=== PATIENT | male | born 2000 | race Caucasian/White ===

== ENCOUNTER 2024-08-17 01:18 | Emergency (ER) | payer BC, MEDICAID, SELFPAY ==
[2024-08-17] VITALS (10 sets, daily range): BP systolic 105–137; BP diastolic 54–75; PULSE 57–83; RESP 16–18; TEMP 36.6; O2SAT 96–100; BMI 20.9
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
== END 2024-08-17 04:21 | disposition home or self-care (01) ==
PROVIDERS: Emergency Provider Emergency Medicine
DX: M79.18 Myalgia, other site (principal); S20.20XA Contusion of thorax, unspecified, initial encounter; Z72.0 Tobacco use; V09.9XXA Pedestrian injured in unspecified transport accident, initial encounter
CPT/HCPCS: 73562; 73630; 99284

== ENCOUNTER 2025-03-11 13:08 | Inpatient (IN) | payer BC, MEDICAID, SELFPAY ==
[2025-03-11 13:10] VITALS: BP 111/77; PULSE 99; RESP 16; TEMP 36.7; O2SAT 99
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
[2025-03-11 13:50] LABS: PCP Screen Urine Negative (Negative)
[2025-03-11 14:08] LABS: Hematocrit 39.6 % (37-53); Hemoglobin 13.10 g/dL (11.27-16.99); Mean Corpuscular HGB Conc 33.1 g/dL (30-55); Mean Corpuscular Hemoglobin 31.0 pg (27-33); Mean Corpuscular Volume 93.6 fl (82-101); Nucleated Red Blood Cells % 0 %; Platelet Count 202 10^3/cmm (157-399); Red Blood Count 4.23 10^6/uL (3.85-5.65); White Blood Count 7.50 10^3/uL (3.29-11.43)
[2025-03-11 14:26] LABS: Alanine Aminotransferase 13 U/L (0-41); Albumin Level 4.6 g/dL (3.5-5.2); Alkaline Phosphatase 57 U/L (40-130); Aspartate Amino Transferase 15 U/L (0-40); Blood Urea Nitrogen 16 mg/dL (6-20); Calcium 9.5 mg/dL (8.5-10.5); Carbon Dioxide 25 mmol/L (22-29); Chloride 100 mmol/L (98-107); Creatinine Clr Calc Pharmacy 116.1687; Globulin 2.5 g/dL (1.3-4.6); Glucose 84 mg/dL (65-115); Osmolality Calculated 284 mOsm/kg (285-295); Sodium 137 mmol/L (136-145); Total Protein 7.1 g/dL (6.6-8.7)
[2025-03-11 14:27] LABS: Acetaminophen < 5.0 ug/mL (10-30); Alcohol Level < 10 mg/dL (0-10); Anion Gap 16.3 (5-19); Potassium 4.3 mmol/L (3.5-5.1); Salicylate < 0.3 mg/dL (3-10)
[2025-03-11 15:14] VITALS: BP 106/79; PULSE 72; RESP 16; TEMP 36.8; O2SAT 100
--- NOTE | 2025-03-11 15:18 | PC.NURSE ---
96 hr rights reviewed with pt @1400 with assistance of [facility] chief credit officer Ross Rojas. All education reviewed with pt at this time. Pt verbalized understanding to hold parameters. Pt copy was left with pt @bedside. Pt provided a sandwich, pudding and soda. No further needs at this time
[2025-03-11 19:54] VITALS: BP 87/54; PULSE 57; RESP 16; TEMP 36.7; O2SAT 97
[2025-03-12 06:00] VITALS: BP 92/60; PULSE 69; RESP 15; TEMP 36.7; O2SAT 97
[2025-03-12 14:00] VITALS: BP 93/66; PULSE 85; RESP 18; TEMP 36.8; O2SAT 97
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
[2025-03-12 20:26] VITALS: BP 86/53; PULSE 55; RESP 16; TEMP 36.6; O2SAT 98
[2025-03-13 06:00] VITALS: BP 93/53; PULSE 60; RESP 17; TEMP 36.4; O2SAT 100
[2025-03-13 14:00] VITALS: PULSE 77; RESP 16; TEMP 36.9; O2SAT 99
[2025-03-13 19:51] VITALS: BP 98/66; PULSE 97; RESP 20; TEMP 36.7; O2SAT 100
--- NOTE | 2025-03-13 20:32 | P.NPUPN_ITS ---
Subjective NPU 2 Subjective: Patient presented today reporting that things were going better than yesterday. He was very focused on the fact that by being in the hospital he missed his son's fifth birthday. We discussed the fact that I am most focused on him being available and functional for the remainder of his birthdays than I am concerned about the 1 he missed as he was trying to be in a better place. We discussed sober living treatment and he seemed quite active alert and was of the belief that if he goes and states that his mother did some house she will prevent him from using because she will allow that kind of thing. He is not interested in medications and just endorsed now understanding that he should not use anymore. Mental Status Exam 2 MSE Comments: This is a slender possibly underweight white male in the hospital scrubs with limited grooming and poor eye contact. No abnormal movements except for moderate psychomotor retardation. More cooperative with exam and mild distress. Speech was more spontaneous, but decreased rate and volume. Mood described as a little better, affect was less lethargic. Thought process linear. Thought content: Patient did not report suicidal or homicidal ideation but did at admission, there were no delusions reported or noted, he did not report auditory or visual hallucinations. Attention and concentration were limited and memory was currently unreliable but none were formally tested. He is arousable and oriented to person and place. Insight, judgment and impulse control are impaired. Vitals/I&O/Wt Last Vital Signs Temp 98.1 F 03/13/25 19:51 Pulse 97 03/13/25 19:51 Resp 20 H 03/13/25 19:51 BP 98/66 03/13/25 19:51 Pulse Ox 100 03/13/25 19:51 O2 Del Method Room Air 03/13/25 19:51 Data NPU 03/11/25 14:01 03/11/25 14:01 A&P Assessment and plan 1. Suicidal ideation: 2. Depression: 3. Partner relational problem: 4. Methamphetamine use disorder, severe: Plan: This is a 24-year-old white male who is unknown to [facility] psychiatry but presents with suicidal ideation and depression with active addiction with a UDS positive for cannabis and amphetamines. 1. Consider medications. 2. Encourage individual, group and milieu therapies. 3. Continue every 15 minute checks for safety. 4. Encourage sober living treatment after discharge at the highest level care to which she is willing to commit. 5. Obtain collateral information. 6. Observe against the backdrop of the 96-hour hold. PDMP PDMP Reviewed: Not Reviewed Involuntary Hold Information 2 Hold Status: Legal Status: 96 Hour Hold Date/Time Hold Expires: 03/17/25 @ 1348 Attestations NPU 2 Medical Necessity Statement*: Inpatient hospitalization is medically necessary and the clinically appropriate intervention at this time. We will monitor/initiate medications and make changes as indicated. Likely length of stay 2-4 days. Coding Level of Care Code Acute Code for [facility] Fwd Diagnoses Suicidal ideation R45.851 Depression F32.A Partner relational problem Z63.0 Methamphetamine use disorder, severe F15.20
[2025-03-14 06:00] VITALS: BP 85/53; PULSE 84; RESP 18; TEMP 36.7; O2SAT 98
--- NOTE | 2025-03-14 13:11 | W.PM.NPUPNS ---
Subjective NPU Subjective: Patient presented today reporting that he is doing better. He was finally willing to talk to the treatment team about treatment moving forward after discharge and endorsed an openness to outpatient sober living treatment likely at [facility]. We discussed the likelihood of discharge in the morning. Mental Status Exam MSE Comments: This is a slender possibly underweight white male in the hospital scrubs with limited grooming and poor eye contact. No abnormal movements except for mild resolving psychomotor retardation. More cooperative with exam in mild distress. Speech was more spontaneous, but decreased rate and volume. Mood described as a little better, affect was less lethargic. Thought process linear. Thought content: Patient did not report suicidal or homicidal ideation but did at admission, there were no delusions reported or noted, he did not report auditory or visual hallucinations. Attention and concentration were limited and memory was more reliable but none were formally tested. He is alert and oriented x 3. Insight, judgment and impulse control are impaired. Vitals/I&O/Wt Last Vital Signs Temp 98.0 F 03/14/25 06:00 Pulse 84 03/14/25 06:00 Resp 18 03/14/25 06:00 BP 85/53 03/14/25 06:00 Pulse Ox 98 03/14/25 06:00 O2 Del Method Room Air 03/14/25 06:00 Data NPU 03/11/25 14:01 03/11/25 14:01 A&P Assessment and plan 1. Suicidal ideation: 2. Depression: 3. Partner relational problem: 4. Methamphetamine use disorder, severe: Plan: This is a 24-year-old white male who is unknown to [facility] psychiatry but presents with suicidal ideation and depression with active addiction with a UDS positive for cannabis and amphetamines. 1. Consider medications. 2. Encourage individual, group and milieu therapies. 3. Continue every 15 minute checks for safety. 4. Encourage sober living treatment after discharge at the highest level care to which he is willing to commit. He is reportedly going to work with [facility] for outpatient treatment 5. Obtain collateral information. 6. Observe against the backdrop of the 96-hour hold. 7. Likely plan for discharge in the morning. PDMP PDMP Reviewed: Not Reviewed Involuntary Hold Information Hold Status: Legal Status: 96 Hour Hold Date/Time Hold Expires: 03/17/25 @ 1348 Attestations NPU Medical Necessity Statement*: Inpatient hospitalization is medically necessary and the clinically appropriate intervention at this time. We will monitor/initiate medications and make changes as indicated. Likely length of stay 1-3 days. Coding Level of Care Code Acute Code for [facility] Fwd Diagnoses Suicidal ideation R45.851 Depression F32.A Partner relational problem Z63.0 Methamphetamine use disorder, severe F15.20
[2025-03-14 14:00] VITALS: BP 136/64; PULSE 93; RESP 18; TEMP 36.8; O2SAT 98
[2025-03-14 20:10] VITALS: BP 110/63; PULSE 91; RESP 20; TEMP 36.7; O2SAT 94
[2025-03-15 02:48] VITALS: BP 98/67; PULSE 87; RESP 16; TEMP 36.5; O2SAT 97
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
[2025-03-15 13:37] VITALS: BP 98/67; PULSE 87; RESP 18; TEMP 36.5; O2SAT 97
== END 2025-03-15 13:57 | disposition home or self-care (01) | DRG 881 ==
LOC: ER 13:48 → NP 14:00
PROVIDERS: Admitting Provider Psychiatry & Neurology Psychiatry; Emergency Provider Emergency Medicine; Visit Provider Psychiatry & Neurology Psychiatry
DX: F32.A Depression, unspecified (principal); R45.851 Suicidal ideations; F15.20 Other stimulant dependence, uncomplicated; Z63.0 Problems in relationship with spouse or partner; F12.20 Cannabis dependence, uncomplicated
CPT/HCPCS: 36415; 80053; 80306; 80307; 85025; 97150; 97165; 99285; J9999

== ENCOUNTER 2025-05-19 15:03 | Emergency (ER) | payer BC, MEDICAID, SELFPAY | END 2025-05-19 15:46 | disposition left against medical advice (07) | PROVIDERS: Emergency Provider Physician Assistant | DX: Z53.21 Procedure and treatment not carried out due to patient leaving prior to being seen by health care provider (principal) ==

== ENCOUNTER 2025-05-20 02:52 | Inpatient (IN) | payer BC, MEDICAID, SELFPAY ==
[2025-05-20] VITALS (13 sets, daily range): BP systolic 78–124; BP diastolic 49–79; PULSE 45–100; RESP 12–18; TEMP 36.6–36.7; O2SAT 92–100; BMI 22.3
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
--- NOTE | 2025-05-20 03:10 | ECG_ITS ---
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 Measurements Intervals [place] Rate: 57 P: 145 MO: 141 QRS: 128 QRSD: 109 T: 117 QT: 457 QTc: 448 Interpretive Statements SINUS BRADYCARDIA ARM LEADS REVERSED [INVERTED P AND QRS IN I] INCOMPLETE RIGHT BUNDLE BRANCH BLOCK No previous ECG available for comparison Electronically Signed On 05-20-2025 07:57:29 CDT by Luci Summers M.D. [email or web address]
[2025-05-20 03:13] LABS: Hematocrit 45.2 % (37-53); Hemoglobin 13.70 g/dL (11.27-16.99); Mean Corpuscular HGB Conc 30.3 g/dL (30-55); Mean Corpuscular Hemoglobin 31.6 pg (27-33); Mean Corpuscular Volume 104.1 fl (82-101); Nucleated Red Blood Cells % 0 %; Platelet Count 230 10^3/cmm (157-399); Red Blood Count 4.34 10^6/uL (3.85-5.65); White Blood Count 15.54 10^3/uL (3.29-11.43)
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
--- NOTE | 2025-05-20 03:27 | PC.NURSE ---
Per physician, pt transferred directly to restraint bed from EMS [facility].
--- NOTE | 2025-05-20 03:45 | PC.NURSE ---
96 HH Pt served with copy of 96 HH by this RN and security.
[2025-05-20 03:56] LABS: Alanine Aminotransferase 17 U/L (0-41); Albumin Level 4.4 g/dL (3.5-5.2); Alkaline Phosphatase 60 U/L (40-130); Anion Gap 17.5 (5-19); Aspartate Amino Transferase 25 U/L (0-40); Blood Urea Nitrogen 10 mg/dL (6-20); Calcium 8.3 mg/dL (8.5-10.5); Carbon Dioxide 19 mmol/L (22-29); Chloride 106 mmol/L (98-107); Creatinine Clr Calc Pharmacy 149.4507; Globulin 1.8 g/dL (1.3-4.6); Glucose 99 mg/dL (65-115); Osmolality Calculated 287 mOsm/kg (285-295); Potassium 3.5 mmol/L (3.5-5.1); Sodium 139 mmol/L (136-145); Thyroid Stimulating Hormone 1.23 uIU/mL (0.27-4.20); Total Protein 6.2 g/dL (6.6-8.7)
[2025-05-20 03:59] LABS: Acetaminophen < 5.0 ug/mL (10-30); Alcohol Level < 10 mg/dL (0-10); Salicylate < 0.3 mg/dL (3-10)
--- NOTE | 2025-05-20 03:59 | PC.NURSE ---
Geodon was held due to low HR at this time. This nurse, Sukhdeep RN and Olivia charge nurse wasted Geodon in the pyxis. [employer] did not allow for a second nurse verification. Olivia and Sukhdeep witnessed that this medication was wasted.
--- NOTE | 2025-05-20 05:50 | PC.NURSE ---
unable to obtain temp
--- NOTE | 2025-05-20 05:51 | PC.NURSE ---
unable to obtain temp
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
--- NOTE | 2025-05-20 09:24 | PC.OT ---
OT EVALUATION ORDERS RECEIVED. HOLD OT EVALUATION PER NURSING PATIENT HAS BEEN AGITATED AND IS CURRENTLY SLEEPING.
--- NOTE | 2025-05-20 11:42 | NUR.SHIFT ---
Pt received multiple medications upon arrival to the unit and he has not woke up to answer questions for an assessment.
[2025-05-21 06:00] VITALS: BP 98/51; PULSE 54; RESP 16; TEMP 36.7; O2SAT 99
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
--- NOTE | 2025-05-21 09:55 | PC.NURSE ---
Dr. Cruz gave verbal approval for pt to wear the nicotine patch and use the nicotine gum simultaneously.
[2025-05-21 11:06] LABS: Glucose Urine UA Negative (Normal); Nitrate Urine Negative (Negative); Specific Gravity, Urine 1.010 (1.005-1.030)
[2025-05-21 11:11] LABS: Add Urine Microscopic? YES
[2025-05-21 11:20] LABS: PCP Screen Urine Negative (Negative)
--- NOTE | 2025-05-21 12:30 | PC.NURSE ---
Pt removed nicotine patch @ 8883, an would rather have the nicotine gum or lozenge instead.
[2025-05-21 14:00] VITALS: BP 127/75; PULSE 59; RESP 17; TEMP 36.6; O2SAT 99
--- NOTE | 2025-05-21 18:06 | P.NPUPN_ITS ---
Subjective NPU 2 Subjective: Patient presented today reporting that he is doing better than yesterday but still having issues with depression and anxiety. We discussed the risks, benefits and alternatives of a trial of Prozac 20 mg p.o. daily and he understood and agreed to proceed as is documented in this note. He continues to report a desire to work with the social work team on appropriate follow-up after discharge. Hide any side effects of medication.. Mental Status Exam 2 MSE Comments: This is a slender possibly underweight white male in the hospital scrubs with limited grooming and poor eye contact. No abnormal movements except for significant psychomotor retardation. More cooperative with exam in mild to moderate distress. Speech was limited and decreased rate and volume. Mood described as depressed and anxious, affect was congruent and subdued. Thought process linear but at other times appeared disorganized. Thought content: Patient did not report suicidal or homicidal ideation, there were no delusions reported or noted, he did not report auditory or visual hallucinations. Attention and concentration were limited and memory was unreliable but none were formally tested. He is alert and oriented x 3. Insight, judgment and impulse control are impaired. Vitals/I&O/Wt Last Vital Signs Temp 97.8 F 05/21/25 14:00 Pulse 59 L 05/21/25 14:00 Resp 17 05/21/25 14:00 BP 127/75 05/21/25 14:00 Pulse Ox 99 05/21/25 14:00 O2 Del Method Room Air 05/21/25 14:00 Weight last 48 hrs Weight 72.575 kg Data NPU 05/20/25 03:08 05/20/25 03:08 A&P Assessment and plan 1. Suicidal ideation: 2. Depression: 3. Partner relational problem: 4. Methamphetamine use disorder, severe: Plan: This is a 25-year-old white male who just recently known to [facility] psychiatry through a past inpatient stay with active addiction and lethality who presents 2 months later with a similar presentation but denying methamphetamine use since his last admission. 1. Start Prozac 20 mg p.o. every morning. 2. Encourage individual, group and milieu therapies. 3. Continue every 15 minute checks for safety. 4. Encourage sober living treatment after discharge at the highest level care to which he is willing to commit. Recommendation for active/inpatient sober living treatment is still the recommendation 5. Obtain collateral information. 6. Observe against the backdrop of the 96-hour hold. 7. Recheck CBC with differential PDMP PDMP Reviewed: Not Reviewed Involuntary Hold Information 2 Hold Status: Legal Status: 96 Hour Hold Date/Time Hold Expires: @02:52 Attestations NPU 2 Medical Necessity Statement*: Inpatient hospitalization is medically necessary and the clinically appropriate intervention at this time. We will monitor/initiate medications and make changes as indicated. Likely length of stay 3-5 days. Coding Level of Care Code Acute Code for Chg Fwd Diagnoses Suicidal ideation R45.851 Depression F32.A Partner relational problem Z63.0 Methamphetamine use disorder, severe F15.20
[2025-05-21 20:01] VITALS: BP 120/73; PULSE 68; RESP 16; TEMP 37.2; O2SAT 100
[2025-05-22 06:00] VITALS: BP 113/67; PULSE 63; RESP 63; TEMP 36.7; O2SAT 99
[2025-05-22 08:21] LABS: Hematocrit 49.0 % (37-53); Hemoglobin 15.50 g/dL (11.27-16.99); Mean Corpuscular HGB Conc 31.6 g/dL (30-55); Mean Corpuscular Hemoglobin 31.2 pg (27-33); Mean Corpuscular Volume 98.6 fl (82-101); Nucleated Red Blood Cells % 0 %; Platelet Count 269 10^3/cmm (157-399); Red Blood Count 4.97 10^6/uL (3.85-5.65); White Blood Count 8.02 10^3/uL (3.29-11.43)
[2025-05-22 13:52] VITALS: BP 103/62; PULSE 68; RESP 18; TEMP 36.7; O2SAT 98
--- NOTE | 2025-05-22 14:46 | P.NPUPN_ITS ---
Subjective NPU 2 Subjective: Patient presented today reporting that things where improving. He endorsed working with the social work team on possible rehab options. He identified that the rehabs will likely be off in the future and started at identifying what discharge might look like we discussed working with the social work team for different options he wanted if he could not be discharged to his grandmother's house and that he would weight-bear awaiting his bed date for rehab. He denied any side effects of medication. Mental Status Exam 2 MSE Comments: This is a slender possibly underweight white male in the hospital scrubs with limited grooming and poor eye contact. No abnormal movements except for significant psychomotor retardation. More cooperative with exam in mild distress. Speech was limited and decreased rate and volume. Mood described as a little better maybe I could go home, affect was congruent and subdued. Thought process linear but at other times appeared disorganized. Thought content: Patient did not report suicidal or homicidal ideation, there were no delusions reported or noted, he did not report auditory or visual hallucinations. Attention and concentration were limited and memory was unreliable but none were formally tested. He is alert and oriented x 3. Insight, judgment and impulse control are impaired. Vitals/I&O/Wt Last Vital Signs Temp 98.1 F 05/22/25 13:52 Pulse 68 05/22/25 13:52 Resp 18 05/22/25 13:52 BP 103/62 05/22/25 13:52 Pulse Ox 98 05/22/25 13:52 O2 Del Method Room Air 05/22/25 13:52 Data NPU 05/22/25 08:11 05/20/25 03:08 A&P Assessment and plan 1. Suicidal ideation: 2. Depression: 3. Partner relational problem: 4. Methamphetamine use disorder, severe: Plan: This is a 25-year-old white male who just recently known to [facility] psychiatry through a past inpatient stay with active addiction and lethality who presents 2 months later with a similar presentation but denying methamphetamine use since his last admission. 1. Started Prozac 20 mg p.o. every morning. 2. Encourage individual, group and milieu therapies. 3. Continue every 15 minute checks for safety. 4. Encourage sober living treatment after discharge at the highest level care to which he is willing to commit. Recommendation for active/inpatient sober living treatment is still the recommendation 5. Obtain collateral information. 6. Observe against the backdrop of the 96-hour hold. 7. Recheck CBC with differential PDMP PDMP Reviewed: Not Reviewed Involuntary Hold Information 2 Hold Status: Legal Status: 96 Hour Hold Date/Time Hold Expires: @02:52 Attestations NPU 2 Medical Necessity Statement*: Inpatient hospitalization is medically necessary and the clinically appropriate intervention at this time. We will monitor/initiate medications and make changes as indicated. Likely length of stay 2-4 days. Coding Level of Care Code Acute Code for Chg Fwd Diagnoses Suicidal ideation R45.851 Depression F32.A Partner relational problem Z63.0 Methamphetamine use disorder, severe F15.20
[2025-05-22 19:48] VITALS: BP 121/85; PULSE 94; RESP 19; O2SAT 98
[2025-05-23 06:00] VITALS: BP 100/59; PULSE 62; RESP 18; TEMP 36.7; O2SAT 99
--- NOTE | 2025-05-23 13:00 | W.PM.NPUPNS ---
Subjective NPU Subjective: Patient presented today reporting that things were going fairly well. He discussed the difficulty that he has had finding of rehab spot that we will accept him. Additionally we discussed the importance of him attending rehab and not reporting the plan in going. We discussed possibility of discharge likely at the beginning of the week but hopefully there will be a solution to his rehab options prior we discussed he has a likely treatment. He is Mental Status Exam MSE Comments: This is a slender possibly underweight white male in the hospital scrubs with limited grooming and poor eye contact. No abnormal movements except for significant psychomotor retardation. More cooperative with exam in mild distress. Speech was limited and decreased rate and volume. Mood described as a little better, affect was congruent and subdued. Thought process linear but at other times appeared disorganized. Thought content: Patient did not report suicidal or homicidal ideation, there were no delusions reported or noted, he did not report auditory or visual hallucinations. Attention and concentration were limited and memory was unreliable but none were formally tested. He is alert and oriented x 3. Insight, judgment and impulse control are impaired. Vitals/I&O/Wt Last Vital Signs Temp 98.0 F 05/23/25 06:00 Pulse 62 05/23/25 06:00 Resp 18 05/23/25 06:00 BP 100/59 05/23/25 06:00 Pulse Ox 99 05/23/25 06:00 O2 Del Method Room Air 05/23/25 06:00 Data NPU 05/22/25 08:11 05/20/25 03:08 A&P Assessment and plan 1. Suicidal ideation: 2. Depression: 3. Partner relational problem: 4. Methamphetamine use disorder, severe: Plan: This is a 25-year-old white male who just recently known to [facility] psychiatry through a past inpatient stay with active addiction and lethality who presents 2 months later with a similar presentation but denying methamphetamine use since his last admission. 1. Started Prozac 20 mg p.o. every morning. 2. Encourage individual, group and milieu therapies. 3. Continue every 15 minute checks for safety. 4. Encourage sober living treatment after discharge at the highest level care to which he is willing to commit. Recommendation for active/inpatient sober living treatment is still the recommendation 5. Obtain collateral information. 6. Observe against the backdrop of the 96-hour hold. 7. Rechecked CBC with differential and he was absent any leukocytosis. PDMP PDMP Reviewed: Not Reviewed Involuntary Hold Information Hold Status: Legal Status: 96 Hour Hold Date/Time Hold Expires: 05/26/25@02:52 Attestations NPU Medical Necessity Statement*: Inpatient hospitalization is medically necessary and the clinically appropriate intervention at this time. We will monitor/initiate medications and make changes as indicated. Likely length of stay 2-4 days. Coding Level of Care Code Acute Code for g Fwd Diagnoses Suicidal ideation R45.851 Depression F32.A Partner relational problem Z63.0 Methamphetamine use disorder, severe F15.20
[2025-05-23 14:00] VITALS: BP 126/86; PULSE 74; RESP 20; TEMP 37.6; O2SAT 100
[2025-05-23 22:00] VITALS: BP 114/76; PULSE 75; RESP 17; TEMP 37.4; O2SAT 97
[2025-05-24 06:00] VITALS: BP 101/58; PULSE 74; RESP 18; TEMP 36.6; O2SAT 98
[2025-05-24 12:55] VITALS: BP 91/56; PULSE 60; RESP 16; TEMP 36.8; O2SAT 100
--- NOTE | 2025-05-24 18:53 | P.NPUPN_ITS ---
Subjective NPU 2 Subjective: Patient presented today reporting that he is starting to feel a lot better and more optimistic about his recovery. He reports the medications are working well and he is hopeful that we can give him the trazodone at discharge as he had previously used cannabis to sleep and he is identifying that that is probably not a good plan. Otherwise he denied any side effects of his medication. Mental Status Exam 2 MSE Comments: This is a slender possibly underweight white male in the hospital scrubs with limited grooming and poor eye contact. No abnormal movements except for significant psychomotor retardation. More cooperative with exam in mild distress. Speech was more normal rate and volume. Mood described as a little better, affect was congruent and subdued. Thought process linear but at other times appeared disorganized. Thought content: Patient did not report suicidal or homicidal ideation, there were no delusions reported or noted, he did not report auditory or visual hallucinations. Attention and concentration were limited and memory was unreliable but none were formally tested. He is alert and oriented x 3. Insight, judgment and impulse control are improving.. Vitals/I&O/Wt Last Vital Signs Temp 98.3 F 05/24/25 12:55 Pulse 60 05/24/25 12:55 Resp 16 05/24/25 12:55 BP 91/56 05/24/25 12:55 Pulse Ox 100 05/24/25 12:55 O2 Del Method Room Air 05/24/25 12:55 Weight last 48 hrs Weight 63.56 kg Data NPU 05/22/25 08:11 05/20/25 03:08 A&P Assessment and plan 1. Suicidal ideation: 2. Depression: 3. Partner relational problem: 4. Methamphetamine use disorder, severe: Plan: This is a 25-year-old white male who just recently known to [facility] psychiatry through a past inpatient stay with active addiction and lethality who presents 2 months later with a similar presentation but denying methamphetamine use since his last admission. 1. Started Prozac 20 mg p.o. every morning. 2. Encourage individual, group and milieu therapies. 3. Continue every 15 minute checks for safety. 4. Encourage sober living treatment after discharge at the highest level care to which he is willing to commit. Recommendation for active/inpatient sober living treatment is still the recommendation 5. Obtain collateral information. 6. Observe against the backdrop of the 96-hour hold. 7. Rechecked CBC with differential and he was absent any leukocytosis. PDMP PDMP Reviewed: Not Reviewed Involuntary Hold Information 2 Hold Status: Legal Status: 96 Hour Hold Date/Time Hold Expires: @02:52 Attestations NPU 2 Medical Necessity Statement*: Inpatient hospitalization is medically necessary and the clinically appropriate intervention at this time. We will monitor/initiate medications and make changes as indicated. Likely length of stay 2-4 days. Coding Level of Care Code Acute Code for Chg Fwd Diagnoses Suicidal ideation R45.851 Depression F32.A Partner relational problem Z63.0 Methamphetamine use disorder, severe F15.20
[2025-05-24 21:13] VITALS: BP 113/70; PULSE 64; RESP 18; TEMP 37.3; O2SAT 98
[2025-05-25 05:55] VITALS: BMI 19.5
[2025-05-25 06:00] VITALS: BP 102/69; PULSE 78; RESP 18; TEMP 36.6; O2SAT 99
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
[2025-05-25 13:28] VITALS: BP 114/70; PULSE 80; RESP 16; TEMP 37.2; O2SAT 98
--- NOTE | 2025-05-25 18:05 | P.NPUPN_ITS ---
Subjective NPU 2 Subjective: Patient presented today reporting that he has learned more this time and had a fully different approach that he will continue to use. We discussed him having a hearing scheduled for 3 PM on Monday but that it is really possible that he might not have the hearing, they may find him a place to go or might agree to have him sign in given his cooperation with the process. He reports he is doing well his medication and is optimistic about his future. He denied any side effects of the medication. Mental Status Exam 2 MSE Comments: This is a slender possibly underweight white male in the hospital scrubs with limited grooming and poor eye contact. No abnormal movements except for significant psychomotor retardation. More cooperative with exam in mild distress. Speech was more normal rate and volume. Mood described as a little better, affect was congruent and subdued. Thought process linear but at other times appeared disorganized. Thought content: Patient did not report suicidal or homicidal ideation, there were no delusions reported or noted, he did not report auditory or visual hallucinations. Attention and concentration were limited and memory was unreliable but none were formally tested. He is alert and oriented x 3. Insight, judgment and impulse control are improving.. Vitals/I&O/Wt Last Vital Signs Temp 99.4 F 05/25/25 19:56 Pulse 98 05/25/25 19:56 Resp 17 05/25/25 19:56 BP 116/68 05/25/25 19:56 Pulse Ox 97 05/25/25 19:56 O2 Del Method Room Air 05/25/25 19:56 Weight last 48 hrs Weight 63.56 kg Data NPU 05/22/25 08:11 05/20/25 03:08 A&P Assessment and plan 1. Suicidal ideation: 2. Depression: 3. Partner relational problem: 4. Methamphetamine use disorder, severe: Plan: This is a 25-year-old white male who just recently known to [facility] psychiatry through a past inpatient stay with active addiction and lethality who presents 2 months later with a similar presentation but denying methamphetamine use since his last admission. 1. Started Prozac 20 mg p.o. every morning. 2. Encourage individual, group and milieu therapies. 3. Continue every 15 minute checks for safety. 4. Encourage sober living treatment after discharge at the highest level care to which he is willing to commit. Recommendation for active/inpatient sober living treatment is still the recommendation 5. Obtain collateral information. 6. Observe against the backdrop of the 96-hour hold. 7. Rechecked CBC with differential and he was absent any leukocytosis. PDMP PDMP Reviewed: Not Reviewed Involuntary Hold Information 2 Hold Status: Legal Status: 96 Hour Hold Date/Time Hold Expires: @02:52 Attestations NPU 2 Medical Necessity Statement*: Inpatient hospitalization is medically necessary and the clinically appropriate intervention at this time. We will monitor/initiate medications and make changes as indicated. Likely length of stay 1-3 days. Coding Level of Care Code Acute Code for Chg Fwd Diagnoses Suicidal ideation R45.851 Depression F32.A Partner relational problem Z63.0 Methamphetamine use disorder, severe F15.20
[2025-05-25 19:56] VITALS: BP 116/68; PULSE 98; RESP 17; TEMP 37.4; O2SAT 97
[2025-05-26 06:00] VITALS: BP 100/62; PULSE 75; RESP 16; TEMP 36.4; O2SAT 96
[2025-05-26 14:00] VITALS: RESP 18
--- NOTE | 2025-05-26 18:03 | W.PM.NPUPNS ---
Subjective NPU Subjective: 25-year-old male with a history of drug induced psychotic disorder currently endorsing no psychotic symptoms. He reported that he had not been using amphetamine. The patient had endorsed that he may have used amphetamines for several days prior to his hospitalization here. He had expressed interest in considering inpatient substance abuse treatment. He had reported that he was hopeful about going to [facility] for inpatient substance abuse treatment. He reported no feelings of hopelessness. He reported no side effects from his medication. Mental Status Exam MSE Comments: This is a slender possibly underweight white male in the hospital scrubs with limited grooming and fair eye contact. No abnormal involuntary motor movements except for mild psychomotor retardation. He was cooperative with exam in mild distress. Speech was normal in rate and normal in volume. Mood described as a good. His affect was congruent and subdued. Thought process was linear and logical today. Thought content: Patient did not report suicidal or homicidal ideation, There were no delusions reported or noted, he did not report auditory or visual hallucinations. Attention and concentration were limited and memory was unreliable but none were formally tested. He is alert and oriented x 3. Insight was poor. His judgment and impulse control are improving.His recent and remote memory was grossly intact. Vitals/I&O/Wt Last Vital Signs Temp 97.6 F 05/26/25 06:00 Pulse 75 05/26/25 06:00 Resp 18 05/26/25 14:00 BP 100/62 05/26/25 06:00 Pulse Ox 96 05/26/25 06:00 O2 Del Method Room Air 05/26/25 06:00 Weight last 48 hrs Weight 63.56 kg Data NPU 05/22/25 08:11 05/20/25 03:08 A&P Assessment and plan 1. Suicidal ideation: 2. Depression: 3. Partner relational problem: 4. Methamphetamine use disorder, severe: Plan: This is a 25-year-old white male who just recently known to [facility] psychiatry through a past inpatient stay with active addiction and lethality who presents 2 months later with a similar presentation but denying methamphetamine use since his last admission. 1. Continue Prozac 20 mg p.o. every morning. 2. Encourage individual, group and milieu therapies. 3. Continue every 15 minute checks for safety. 4. Encourage sober living treatment after discharge at the highest level care to which he is willing to commit. Recommendation for active/inpatient sober living treatment is still the recommendation 5. Obtain collateral information. 6. Observe against the backdrop of the 96-hour hold. 7. Rechecked CBC with differential and he was absent any leukocytosis. PDMP PDMP Reviewed: Not Reviewed Involuntary Hold Information Hold Status: Legal Status: 96 Hour Hold Date/Time Hold Expires: 05/26/25@02:52 Attestations NPU Medical Necessity Statement*: Inpatient hospitalization is medically necessary and the clinically appropriate intervention at this time. We will monitor/initiate medications and make changes as indicated. The patient's likely length of stay is 1-2 days. Coding Level of Care Code Acute Code for Chg Fwd Diagnoses Suicidal ideation R45.851 Depression F32.A Partner relational problem Z63.0 Methamphetamine use disorder, severe F15.20
[2025-05-26 20:13] VITALS: BP 128/81; PULSE 87; RESP 18; TEMP 37.3; O2SAT 95
[2025-05-27 06:00] VITALS: BP 100/62; PULSE 74; RESP 14; TEMP 36.7; O2SAT 92
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
[2025-05-27 13:21] VITALS: BP 100/62; PULSE 74; RESP 14; TEMP 36.6; O2SAT 92
[2025-05-27 13:45] VITALS: BP 128/64; PULSE 87; RESP 14; TEMP 37.3; O2SAT 100
== END 2025-05-27 15:00 | disposition home or self-care (01) | DRG 881 ==
LOC: ER 04:01 → NP 05:17
PROVIDERS: Admitting Provider Psychiatry & Neurology Psychiatry; Emergency Provider Emergency Medicine; Visit Provider Psychiatry & Neurology Psychiatry
DX: F32.A Depression, unspecified (principal); F15.259 Other stimulant dependence with stimulant-induced psychotic disorder, unspecified; R45.851 Suicidal ideations; Z68.1 Body mass index [BMI] 19.9 or less, adult; Z78.1 Physical restraint status; F17.200 Nicotine dependence, unspecified, uncomplicated; F41.9 Anxiety disorder, unspecified; R63.6 Underweight; F12.90 Cannabis use, unspecified, uncomplicated
CPT/HCPCS: 36415; 80053; 80306; 80307; 81001; 84443; 85025; 93005; 97150; 97165; 99285; J9999

== ENCOUNTER 2025-05-29 17:24 | Inpatient (IN) | payer BC, SELFPAY ==
--- NOTE | 2025-05-29 17:11 | ECG_ITS ---
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
[2025-05-29 17:14] VITALS: BMI 19.5
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
[2025-05-29 17:27] VITALS: BP 118/79; PULSE 83; RESP 17; TEMP 37.1; O2SAT 96
--- OUTSIDE RECORDS SUMMARY | 2025-05-29 17:27 | XMS_ITS | Data Portability ---
Author Organization [facility] Kyle Gaytan [facility] Address [address] [facility] [address] [place] [address] Assessment No assessment recorded. Plan of Treatment Reminders Order Date Submit Date Provider Last Modified By Organization Details Last Modified Time Details Appointments None recorded. Lab None recorded. Referral None recorded. Procedures None recorded. Surgeries None recorded. Imaging None recorded. Medication Orders cyclobenzap rine 5 mg tablet 2024 025 [facility], [address], [place], [address], 05:01:24 Patient TargetsNo targets recorded. Patient InstructionsNo instructions recorded. Reason for Referral None Reported. Medical Equipment None Reported. Allergies No known drug allergies Medications Name Sig Start Date Stop Date Status Note LastModified by Organization Details LastModified Time mupirocin 2 % topical ointment three times daily 12/28 completed Recorded 9 3:08PM by Sophia Fan PA-C, Office Visit; Refill Quantity: 0; Not Available Not Available Not Available Bactrim DS 800 mg-160 mg tablet two times daily 12/28 completed Recorded 9 3:08PM by Sophia Fan PA-C, Office Visit; Refill Quantity: 0; Not Available Not Available Not Available cyclobenz aprine 5 mg tablet Take 1 tablet 3 times a day by oral route as needed for 5 days. 01/09 completed Not Available Not Available Not Available Vitals Date Recorded Body weight Body mass index (BMI) Body height Body temperature Heart rate Oxygen saturation Oxygen saturation in Arterial blood by Pulse oximetry Systolic And Diastolic Provider Name and Address Organization Details Last Updated DateTime 05404.9 2 g 19.7 kg/m2 180.34 cm 98.2 [degF] 94 /min 97 % 97 % 118/68 mm[Hg] Christine Carty [facility], Kyle 12:32:18 Social History None recorded. Functional Status None recorded. Mental Status None recorded. Family History Nothing Reported. Medical History No medical history recorded. Immunizations Vaccine Type Date Status Note Provider Nam e and Address Organization Details Recorded Time Hep B, adolescent or pediatric 1 completed Not Available [facility] 12/28/2024 12:26:16 Hep B, adolescent or pediatric 1 completed Not Available [facility] 12/28/2024 12:26:16 DTaP 1 completed Not Available [facility] 12/28/2024 12:26:16 IPV 1 completed Not Available [facility] 12/28/2024 12:26:16 Hib, unspecified formulation 1 completed Not Available [facility] 12/28/2024 12:26:16 pneumococcal, unspecified formulation 1 completed Not Available [facility] 12/28/2024 12:26:16 pneumococcal, unspecified formulation 2 completed Not Available [facility] 12/28/2024 12:26:16 DTaP 2 completed Not Available [facility] 12/28/2024 12:26:16 IPV 2 completed Not Available [facility] 12/28/2024 12:26:16 Hib (PRP-T) 2 completed Not Available [facility] 12/28/2024 12:26:16 pneumococcal, unspecified formulation 2 completed Not Available [facility] 12/28/2024 12:26:16 DTaP 2 completed Not Available [facility] 12/28/2024 12:26:16 Hep B, adolescent or pediatric 2 completed Not Available [facility] 12/28/2024 12:26:16 Hib (PRP-T) 2 completed Not Available [facility] 12/28/2024 12:26:16 pneumococcal, unspecified formulation 3 completed Not Available [facility] 12/28/2024 12:26:16 varicella 3 completed Not Available [facility] 12/28/2024 12:26:16 MMR 3 completed Not Available [facility] 12/28/2024 12:26:16 IPV 3 completed Not Available [facility] 12/28/2024 12:26:16 Hib (PRP-T) 3 completed Not Available [facility] 12/28/2024 12:26:16 DTaP 3 completed Not Available [facility] 12/28/2024 12:26:16 DTaP 6 completed Not Available [facility] 12/28/2024 12:26:16 IPV 6 completed Not Available [facility] 12/28/2024 12:26:16 MMR 6 completed Not Available [facility] 12/28/2024 12:26:16 varicella 5 completed Not Available [facility] 12/28/2024 12:26:16 Tdap 5 completed Not Available [facility] 12/28/2024 12:26:16 meningococcal MCV4P 5 completed Not Available [facility] 12/28/2024 12:26:16 Past Encounters Encounter ID Performer Location Encounter Start Date Encounter Closed Date Diagnosis/Indication Diagnosis SNOMED-CT Code Diagnosis ICD10 Code Diagnosis IMO Codes Diagnosis Note [id number] [facility] ([facility] [address] [place] [address] 12/28/2024 12:25:55 12/29/2024 17:14:41 Acute low back pain 293777797 M54.50 [id number] COntinue voltaren gel. Patient advised to take medication as directed here. Patient advised to rest initially and then slowly increase activity level. Monitor changes in symptoms such as numbness, tingling or weakness in legs, changes in bowel or bladder habits or worsening back pain. Proper ergonomics discussed. Referral to physical therapy as needed. Patient will call if symptoms worsen or if pain persists greater than 8 weeks. Health Concerns Section Related Observation LastModified by Organization Detai ls LastModified Time None Recorded Concern Status LastModified by Organization Details LastModified Time None Recorded Advance Directives Directive None Recorded Payers Insurance Date Sequence Insurance Name Policy Number Policy Lara Covered Member ID Lara Member ID Guarantor Name 12/28/2024 1 [employer] [place] ([place]AC[place] - [place]MO) [id number] Bennie Gaona [id number] Bennie Gaona Notes Date Note Type Note Provider Name and Address Organization Details Recorded Time 12/28/2024 text/html Back PainReporte d by PatientROS as noted in the HPI walk in ptPt is having lower back pain that started yesterday after lifting 50lb bag of feed. Patient states that he twisted with the bag to the left and has had muscle pain since. Patient has applied voltaren gel otc which has helped some.Also having diarrhea since yesterday. Took some otc anti diarrheal medication with resolution of symptoms. Denies any known ill contacts. EDY CUTLER, [facility] [address] [place], [address], [facility] 12/28/2024 13:31:33
[2025-05-29] MEDS: LORazepam 1 MG/0.5 ML injection 2 MG IM (17:41)
[2025-05-29 18:01] LABS: Hematocrit 41.6 % (37-53); Hemoglobin 13.70 g/dL (11.27-16.99); Mean Corpuscular HGB Conc 32.9 g/dL (30-55); Mean Corpuscular Hemoglobin 31.2 pg (27-33); Mean Corpuscular Volume 94.8 fl (82-101); Nucleated Red Blood Cells % 0 %; Platelet Count 188 10^3/cmm (157-399); Red Blood Count 4.39 10^6/uL (3.85-5.65); White Blood Count 9.17 10^3/uL (3.29-11.43)
--- NOTE | 2025-05-29 18:28 | PC.NURSE ---
96 Hour Involuntary Hold Patient Rights have been reviewed with patient and a copy of the same has been provided to him. Battery Test Engineer Griffin Boogie was present at bedside during presentation of Rights.
[2025-05-29 18:40] LABS: Alanine Aminotransferase 22 U/L (0-41); Albumin Level 4.4 g/dL (3.5-5.2); Alkaline Phosphatase 62 U/L (40-130); Anion Gap 15.8 (5-19); Aspartate Amino Transferase 21 U/L (0-40); Blood Urea Nitrogen 12 mg/dL (6-20); Calcium 9.3 mg/dL (8.5-10.5); Carbon Dioxide 22 mmol/L (22-29); Chloride 102 mmol/L (98-107); Globulin 2.5 g/dL (1.3-4.6); Glucose 109 mg/dL (65-115); Osmolality Calculated 282 mOsm/kg (285-295); Potassium 3.8 mmol/L (3.5-5.1); Sodium 136 mmol/L (136-145); Thyroid Stimulating Hormone 0.40 uIU/mL (0.27-4.20); Total Protein 6.9 g/dL (6.6-8.7)
[2025-05-29 18:43] LABS: Acetaminophen < 5.0 ug/mL (10-30); Alcohol Level < 10 mg/dL (0-10); Salicylate < 0.3 mg/dL (3-10)
[2025-05-29 19:21] VITALS: BP 80/50; PULSE 51; RESP 16; O2SAT 95
[2025-05-29 19:23] VITALS: BP 99/72; PULSE 60; O2SAT 95
[2025-05-29 22:00] VITALS: BP 80/50; PULSE 51; RESP 16; O2SAT 95
[2025-05-30 06:00] VITALS: BP 90/50; PULSE 83; RESP 16; TEMP 36.8; O2SAT 95
[2025-05-30 08:03] LABS: Glucose Urine UA Negative (Normal); Nitrate Urine Negative (Negative); Specific Gravity, Urine 1.021 (1.005-1.030)
[2025-05-30 08:08] LABS: Add Urine Microscopic? YES
[2025-05-30 08:10] LABS: PCP Screen Urine Negative (Negative)
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
[2025-05-30 08:24] LABS: UA Slide Review UA Slide Review Perf
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
[2025-05-30 13:25] VITALS: BP 128/84; PULSE 85; RESP 20; TEMP 36.9; O2SAT 100
[2025-05-30 19:53] VITALS: BP 126/82; PULSE 74; RESP 16; TEMP 37; O2SAT 99
[2025-05-31 06:00] VITALS: BP 107/71; PULSE 76; RESP 16; TEMP 36.5; O2SAT 100
--- NOTE | 2025-05-31 08:24 | NUR.SHIFT ---
Pt states that he slept off and on all night. He rates his anxiety 3/10 and no depression. No reports of SI/HI or hallucinations. No pain reported. He is calm and cooperative on assessment.
[2025-05-31 14:00] VITALS: BP 105/64; PULSE 81; RESP 16; TEMP 37.2; O2SAT 96
--- NOTE | 2025-05-31 16:02 | P.NPUPN_ITS ---
Subjective NPU 2 Subjective: 25-year-old male with a history of drug induced psychotic disorder admitted with continued use of high concentration of THC. The patient had reported that he wanted to go to inpatient substance abuse treatment. He had reported having problems with anxiety. He had endorsed depression as well. He had reported no recent use of methamphetamine and reported that he was having problems with his anger. He had reported having anger problems since childhood. He was pleasant and cooperative on the milieu. He was able to attend groups. Mental Status Exam 2 MSE Comments: This is a slender white male in the hospital scrubs with limited grooming and fleeting eye contact. No abnormal involuntary motor movements except for mild psychomotor agitation. He was cooperative with exam and mild distress. Speech was productive and slightly increased in rate and volume. Mood described as okay. Affect was slightly euphoric. Thought process was more linear. Thought content: Patient did not report suicidal or homicidal ideation. There was no evidence of delusional thinking. He did not appear to be responding to internal stimuli. He denied any auditory or visual hallucinations. His attention span appeared better. Attention and concentration were limited and memory was currently unreliable but none were formally tested. He was alert and oriented to person, place, time,and situation. Insight is poor. Judgment was limited. Impulse control appeared poor. Vitals/I&O/Wt Last Vital Signs Temp 98.9 F 05/31/25 14:00 Pulse 81 05/31/25 14:00 Resp 16 05/31/25 14:00 BP 105/64 05/31/25 14:00 Pulse Ox 96 05/31/25 14:00 O2 Del Method Room Air 05/31/25 06:00 Weight last 48 hrs Weight 63.503 kg Data NPU 05/29/25 17:43 05/29/25 17:43 Micro: Microbiology 05/30/25 07:35 Urine Culture - Preliminary Urine,Clean Catch Microbiology 05/30/25 07:35 Urine,Clean Catch Urine Culture - Preliminary A&P Assessment and plan 1. Acute psychosis: 2. Suicidal ideation: 3. Depression: 4. Partner relational problem: 5. Methamphetamine use disorder, severe: Plan: This is a 25-year-old white male who just recently discharged two days prior presenting with agitation and paranoia with likely trigger being THC mixed with hallucinogen (wax). 1. Continue Prozac 20 mg p.o. every morning. Continue Invega 3mg at night for agitation and paranoia. 2. Encourage individual, group and milieu therapies. 3. Continue every 15 minute checks for safety. 4. Encourage sober living treatment after discharge at the highest level care to which he is willing to commit. Recommendation for active/inpatient sober living treatment is still the recommendation 5. Obtain collateral information. 6. Observe against the backdrop of the 96-hour hold. PDMP PDMP Reviewed: Not Reviewed Involuntary Hold Information 2 Hold Status: Legal Status: 96 Hour Hold Date/Time Hold Expires: 1 @18:10 Attestations NPU 2 Medical Necessity Statement*: Inpatient hospitalization is medically necessary and the clinically appropriate intervention at this time. We will monitor/initiate medications and make changes as indicated. Likely length of stay 4 to 6 days. Coding Level of Care Code Acute Code for Chg Fwd Diagnoses Acute psychosis F23 Suicidal ideation R45.851 Depression F32.A Partner relational problem Z63.0 Methamphetamine use disorder, severe F15.20
[2025-05-31 20:17] VITALS: BP 106/63; PULSE 81; RESP 16; TEMP 37.1; O2SAT 97
[2025-06-01 06:00] VITALS: BP 92/52; PULSE 76; RESP 16; TEMP 37; O2SAT 95
--- NOTE | 2025-06-01 07:58 | NUR.SHIFT ---
When patient was asked how he slept last night he states, not bad, but still had weird dreams He is wanting to try taking his nicotine patch off sooner to see if that helps or he thinks it was potentially the trazodone too. he denies anxiety and depression. No reports of SI/HI or Franklyn. No pain reported. He is calm and cooperative on assessment. Asking for shower items.
--- NOTE | 2025-06-01 12:49 | P.NPUPN_ITS ---
Subjective NPU 2 Subjective: 25-year-old male with a history of drug induced psychotic disorder admitted with continued use of high concentration of THC. The patient reported no side effects from his medications. He had reported no hallucinations. He had expressed desire to consider inpatient substance abuse treatment. The patient had reported that he wanted to go to inpatient substance abuse treatment. He had reported having occasional bursts of anxiety. He had not been reported as irritable and stated that he was feeling less paranoid. He reported no problems with his current medication regimen. Mental Status Exam 2 MSE Comments: This is a slender white male in the hospital scrubs with limited grooming and fleeting eye contact. No abnormal involuntary motor movements except for mild psychomotor agitation. He was cooperative with exam and mild distress. Speech was productive and normal in rate and volume. Mood described as okay. Affect was slightly restricted today. Thought process was more linear. Thought content: Patient did not report suicidal or homicidal ideation. There was no evidence of delusional thinking. He did not appear to be responding to internal stimuli. He denied any auditory or visual hallucinations. His attention span appeared better. Attention and concentration was improving. He was alert and oriented to person, place, time,and situation. Insight is poor. Judgment was improving. Impulse control appeared to be better.. Vitals/I&O/Wt Last Vital Signs Temp 98.6 F 06/01/25 06:00 Pulse 76 06/01/25 06:00 Resp 16 06/01/25 06:00 BP 92/52 06/01/25 06:00 Pulse Ox 95 06/01/25 06:00 O2 Del Method Room Air 06/01/25 06:00 Weight last 48 hrs Weight 63.957 kg Data NPU 05/29/25 17:43 05/29/25 17:43 Micro: Microbiology 05/30/25 07:35 Urine Culture - Final Urine,Clean Catch Microbiology 05/30/25 07:35 Urine,Clean Catch Urine Culture - Final A&P Assessment and plan 1. Acute psychosis: 2. Methamphetamine use disorder, severe: 3. Suicidal ideation: 4. Depression: 5. Partner relational problem: Plan: This is a 25-year-old white male who just recently discharged two days prior presenting with agitation and paranoia with likely trigger being THC mixed with hallucinogen (wax). 1. Continue Prozac 20 mg p.o. every morning. Continue Invega 3mg at night for agitation and paranoia which appears better. 2. Encourage individual, group and milieu therapies. 3. Continue every 15 minute checks for safety. 4. Encourage sober living treatment after discharge at the highest level care to which he is willing to commit. Recommendation for active/inpatient sober living treatment is still the recommendation 5. Obtain collateral information. 6. Observe against the backdrop of the 96-hour hold. PDMP PDMP Reviewed: Not Reviewed Involuntary Hold Information 2 Hold Status: Legal Status: 96 Hour Hold Date/Time Hold Expires: 1 @18:10 Attestations NPU 2 Medical Necessity Statement*: Inpatient hospitalization is medically necessary and the clinically appropriate intervention at this time. We will monitor/initiate medications and make changes as indicated. The patient's likely length of stay is 4 to 6 days. Coding Level of Care Code Acute Code for Chg Fwd Diagnoses Acute psychosis F23 Methamphetamine use disorder, severe F15.20 Suicidal ideation R45.851 Depression F32.A Partner relational problem Z63.0
[2025-06-01 13:36] VITALS: BP 116/76; PULSE 83; RESP 16; TEMP 36.9; O2SAT 99
[2025-06-01 19:56] VITALS: BP 110/72; PULSE 77; RESP 16; TEMP 37; O2SAT 98
[2025-06-02 06:00] VITALS: BP 90/57; PULSE 72; RESP 16; TEMP 36.6; O2SAT 97
[2025-06-02 13:22] VITALS: BP 111/71; PULSE 67; RESP 16; TEMP 37.2; O2SAT 100
--- NOTE | 2025-06-02 18:49 | W.PM.NPUPNS ---
Subjective NPU Subjective: 25-year-old male with a history of drug induced psychotic disorder admitted with continued use of high concentration of THC. The patient reported no side effects from his medications. Patient had reported that he was feeling better about leaving tomorrow. He stated that he had a place to stay. He remained optimistic about inpatient substance abuse treatment [facility]. He denied any hallucinations. He had reported feeling more calm although he had reported that his right legs had been feeling restless. He had reported some difficulties falling asleep. He had been pleasant and cooperative on the milieu. He had minimized any depression at this time. He had reported some occasional anxiety. The patient reported that the longest time he has gone without using marijuana has been less than 2 weeks. He had reported having chronic problems with sleep. Mental Status Exam MSE Comments: This is a slender white male in the hospital scrubs with limited grooming and fleeting eye contact. No abnormal involuntary motor movements except for mild psychomotor agitation. He was cooperative with exam and mild distress. Speech was productive and normal in rate and volume. Mood described as okay. Affect was more euthymic today. Thought process was linear. Thought content: Patient did not report suicidal or homicidal ideation. There was no evidence of delusional thinking. He did not appear to be responding to internal stimuli. He denied any auditory or visual hallucinations. His attention span appeared better. Attention and concentration was improving. He was alert and oriented to person, place, time,and situation. Insight is poor. Judgment was improving. Impulse control appeared to be better.. Vitals/I&O/Wt Last Vital Signs Temp 99 F 06/02/25 13:22 Pulse 67 06/02/25 13:22 Resp 16 06/02/25 13:22 BP 111/71 06/02/25 13:22 Pulse Ox 100 06/02/25 13:22 O2 Del Method Room Air 06/02/25 13:22 Weight last 48 hrs Weight 63.957 kg Data NPU 05/29/25 17:43 05/29/25 17:43 A&P Assessment and plan 1. Acute psychosis: 2. Methamphetamine use disorder, severe: 3. Suicidal ideation: 4. Depression: 5. Partner relational problem: Plan: This is a 25-year-old white male who just recently discharged two days prior presenting with agitation and paranoia with likely trigger being THC mixed with hallucinogen (wax). 1. Continue Prozac 20 mg p.o. every morning. Continue Invega 3mg at night for agitation and paranoia which appears better. 2. Encourage individual, group and milieu therapies. 3. Continue every 15 minute checks for safety. 4. Encourage sober living treatment after discharge at the highest level care to which he is willing to commit. Recommendation for active/inpatient sober living treatment is still the recommendation 5. Obtain collateral information. 6. Observe against the backdrop of the 96-hour hold. Likely d/c tommorow. PDMP PDMP Reviewed: Not Reviewed Involuntary Hold Information Hold Status: Legal Status: 96 Hour Hold Date/Time Hold Expires: 06/04/25@18:10 Attestations NPU Medical Necessity Statement*: Inpatient hospitalization is medically necessary and the clinically appropriate intervention at this time. We will monitor/initiate medications and make changes as indicated. The patient's likely length of stay is 1-2 days. Coding Level of Care Code Acute Code for [facility] Fwd Diagnoses Acute psychosis F23 Methamphetamine use disorder, severe F15.20 Suicidal ideation R45.851 Depression F32.A Partner relational problem Z63.0
[2025-06-02 22:00] VITALS: BP 111/67; PULSE 79; RESP 18; TEMP 37; O2SAT 92
[2025-06-03 06:00] VITALS: BP 95/62; PULSE 74; RESP 18; TEMP 36.7; O2SAT 99
[2025-06-03 13:52] VITALS: BP 130/81; PULSE 99; RESP 18; TEMP 37.2; O2SAT 99
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
[2025-06-03 15:00] VITALS: BP 130/81; PULSE 99; RESP 18; TEMP 37.2; O2SAT 99
== END 2025-06-03 16:14 | disposition home or self-care (01) | DRG 885 ==
LOC: ER 18:28 → NP 19:13
PROVIDERS: Admitting Provider Psychiatry & Neurology Psychiatry; Emergency Provider Emergency Medicine; Visit Provider Psychiatry & Neurology Psychiatry
DX: F23 Brief psychotic disorder (principal); R45.851 Suicidal ideations; Z68.1 Body mass index [BMI] 19.9 or less, adult; F15.20 Other stimulant dependence, uncomplicated; F32.A Depression, unspecified; F17.200 Nicotine dependence, unspecified, uncomplicated; R45.850 Homicidal ideations; R63.6 Underweight; F41.9 Anxiety disorder, unspecified; F12.988 Cannabis use, unspecified with other cannabis-induced disorder
CPT/HCPCS: 36415; 80053; 80306; 80307; 81001; 84443; 85025; 87086; 93005; 96372; 97150; 97165; 99285; J2060; J3486; J9999

== ENCOUNTER 2025-06-09 02:32 | Inpatient (IN) | payer SELFPAY ==
[2025-06-09 02:33] VITALS: BP 122/81; PULSE 118; RESP 18; TEMP 37.6; BMI 20.2
--- OUTSIDE RECORDS SUMMARY | 2025-06-09 02:39 | XMS_ITS | Data Portability ---
Author Organization [facility] Kyle Gaytan [facility] Address [address] [place] [address] Assessment No assessment recorded. Plan of Treatment Reminders Order Date Submit Date Provider Last Modified By Organization Details Last Modified Time Details Appointments None recorded. Lab None recorded. Referral None recorded. Procedures None recorded. Surgeries None recorded. Imaging None recorded. Medication Orders cyclobenzap rine 5 mg tablet 2024 025 [facility], [address], [place], [address], 05:01:24 Patient TargetsNo targets recorded. Patient InstructionsNo [...] and Address Organization Details Last Updated DateTime 16511.9 2 g 19.7 kg/m2 180.34 cm 98.2 [degF] 94 /min 97 % 97 % 118/68 mm[Hg] Christine Carty [facility], Kyle 12:32:18 Social History None recorded. Functional Status None recorded. Mental Status None recorded. Family History Nothing Reported. Medical History No medical history recorded. Immunizations Vaccine Type Date Status Note Provider Nam e and Address Organization Details Recorded Time Hep B, adolescent or pediatric 1 completed Not Available [facility] 12/28/[facility] 12:26:16 Hep B, adolescent or pediatric 1 completed [facility] 12/28/2024 12:26:16 DTaP 1 completed Not Available [facility] 12/28/2024 12:26:16 IPV 1 completed [facility] Available [facility] 12/28/2024 12:26:16 Hib, unspecified formulation 1 completed Not Available [facility] 12/28/2024 12:26:16 pneumococcal, unspecified formulation 1 completed [facility] 12/28/2024 12:26:16 pneumococcal, unspecified formulation 2 completed Not Available [facility] 12/28/2024 12:26:16 DTaP 2 completed Not Available [facility] 12/28/2024 12:26:16 IPV 2 completed Not Available [facility] 12/28/2024 12:26:16 Hib (PRP-T) 2 completed Not Available [facility] 12/28/2024 12:26:16 pneumococcal, unspecified formulation 2 completed Not Available [facility] 12/28/2024 12:26:16 DTaP 2 completed Not Available [facility] 12/28/2024 12:26:16 Hep B, adolescent or pediatric 2 completed Not Available [facility] 12/28/2024 12:26:16 Hib (PRP-T) 2 completed Not Available [facility] 12/28/2024 12:26:16 pneumococcal, unspecified formulation [address] [facility] 12/28/2024 12:26:16 varicella [address] [facility] 12/28/2024 12:26:16 MMR [address] [facility] 12/28/2024 12:26:16 IPV [address] [facility] 12/28/2024 12:26:16 Hib (PRP-T) [address] [facility] 12/28/2024 12:26:16 DTaP [address] [facility] 12/28/2024 12:26:16 DTaP [address] [facility] 12/28/2024 12:26:16 IPV [address] [facility] 12/28/2024 12:26:16 MMR [address] [facility] 12/28/2024 12:26:16 varicella [address] [facility] 12/28/2024 12:26:16 T[address]ap [address] [facility] 12/28/2024 12:26:16 meningococcal MCV4P [address] [facility] 12/28/2024 12:26:16 Past Encounters Encounter ID Performer Location Encounter Start Date Encounter Closed Date Diagnosis/Indication Diagnosis SNOMED-CT Code Diagnosis ICD10 Code Diagnosis IMO Codes Diagnosis Note [id number] [facility] [address] [place] [address] 12/28/2024 12:25:55 12/29/2024 17:14:41 Acute low back pain 128841342 M54.50 [id number] COntinue voltaren gel. Patient advised to take [...] Guarantor Name 12/28/2024 1 [employer] [place] (MEDICAID REPLACEMENT - HMO) [id number] Bennie Gaona [id number] Bennie Gaona Notes Date Note Type [...] known ill contacts. EDY CUTLER, EARNEST [address] [place], [address], [facility] 12/28/2024 13:31:33
--- NOTE | 2025-06-09 02:49 | PC.NURSE ---
bandaid applied to wound on forehead.
[2025-06-09 02:53] LABS: Hematocrit 40.0 % (37-53); Hemoglobin 13.60 g/dL (11.27-16.99); Mean Corpuscular HGB Conc 34.0 g/dL (30-55); Mean Corpuscular Hemoglobin 31.1 pg (27-33); Mean Corpuscular Volume 91.3 fl (82-101); Nucleated Red Blood Cells % 0 %; Platelet Count 211 10^3/cmm (157-399); Red Blood Count 4.38 10^6/uL (3.85-5.65); White Blood Count 11.98 10^3/uL (3.29-11.43)
[2025-06-09] MEDS: LORazepam 1 MG/0.5 ML injection 2 MG IM (02:55)
[2025-06-09 03:22] LABS: Alanine Aminotransferase 15 U/L (0-41); Albumin Level 4.9 g/dL (3.5-5.2); Alkaline Phosphatase 63 U/L (40-130); Anion Gap 17.7 (5-19); Aspartate Amino Transferase 20 U/L (0-40); Blood Urea Nitrogen 12 mg/dL (6-20); Calcium 9.3 mg/dL (8.5-10.5); Carbon Dioxide 22 mmol/L (22-29); Chloride 103 mmol/L (98-107); Creatinine Clr Calc Pharmacy 127.9731; Globulin 2.4 g/dL (1.3-4.6); Glucose 99 mg/dL (65-115); Osmolality Calculated 288 mOsm/kg (285-295); Potassium 3.7 mmol/L (3.5-5.1); Sodium 139 mmol/L (136-145); Total Protein 7.3 g/dL (6.6-8.7)
[2025-06-09 03:24] LABS: Acetaminophen < 5.0 ug/mL (10-30); Alcohol Level < 10 mg/dL (0-10); Salicylate < 0.3 mg/dL (3-10)
[2025-06-09 04:12] VITALS: BP 98/57; PULSE 69; RESP 14; O2SAT 96
--- NOTE | 2025-06-09 04:50 | ED.C_ITS ---
HPI - Psych 2 General: Chief Complaint: Psychiatric Symptoms Stated Complaint: concern for od/ erratic behavior Time Seen by Provider: 06/09/25 02:41 History of Present Illness: 25-year-old male recently well-known to the psychiatric service here. He was [place] walking [place] the middle [place], being chased by cats apparently. He attempted to climb into a car when the interstate bus driver stopped to ask if he needed help. 911 was called. He was picked up and placed in the police cruiser where he repeatedly struck his own head on the cage of the cruiser. He continued to respond to nonexistent external stimuli, appeared intoxicated, and was brought to the emergency department. Associated symptoms: Reports delusions Related Data Previous Rx's ?Medication ?Instructions ?Recorded fluoxetine 20 mg capsule 20 mg PO DAILY 30 days #30 c aps 06/03/25 paliperidone 3 mg tablet,extended 3 mg PO 2100 30 days #30 tabs 06/03/25 release 24 hr trazodone 50 mg tablet 50 mg PO BEDTIME PRN Sleep 3 0 days 06/03/25 #30 tabs Allergies Allergy/AdvReac Type Severity Reaction Status Date / Time adhesive Allergy ALGY-Rash Verified 06/09/25 02:39 ketamine Allergy Unknown Verified 06/09/25 02:41 [facility] ED 2 PFSH: Medical History (Updated 06/09/25 @ 05:09 by Jones Badillo DO) Viral disease exposure Social History Smoking and tobacco/nicotine status: current every day tobacco/nicotine user Physical Exam 2 Const: GENERAL APPEARANCE: comfortable; not in distress and not lethargic NUTRITIONAL APPEARANCE: thin O RIENTATION/CONSCIOUSNESS: Yes awake, Yes oriented to person and Yes oriented to place; not oriented to time and not lethargic HENMT: COMMON NORMALS: normocephalic and external ears normal HEAD & SCALP: normocephalic FACE & SINUS: face symmetric and laceration (Tiny on forehead) EXTERNAL EAR: Yes external ears normal Eye: COMMON NORMALS: Equal, round and reactive pupils present and EOMs intact bilaterally PUPIL: Yes Equal, round and reactive pupils present Resp: COMMON NORMALS: normal respiratory effort and No retractions Cardio: COMMON NORMALS: regular rate and regular rhythm RATE: regular rate RHYTHM: regular rhythm GI: INSPECTION: No abdominal distension Neuro: SENSORIUM/ORIENTATION: Yes oriented to person, Yes oriented to place, No oriented to time and No lethargic Psych: ATTITUDE: Yes agitated ACTIVITY/MOTOR BEHAVIOR: Yes psychomotor agitation SPEECH: Yes Pressured speech present THOUGHT CONTENT: Yes delusions and Yes Hallucination(s) present Course 2 Vital Signs: Vital signs: Vital Signs Temperature 98.9 F 06/10/25 19:42 Pulse Rate 93 06/10/25 19:42 Respiratory Rate 16 06/10/25 19:42 Blood Pressure 110/69 06/10/25 19:42 Pulse Oximetry 96 06/10/25 19:42 Oxygen Delivery Me thod Room Air 06/10/25 19:42 MDM - Psych Medical Decision Making Small forehead laceration was bandaged. Medically, he is stable. He was given Geodon and Ativan as he was mildly agitated on arrival. No agitation since. His white blood cell count is 12. Other parameters including CBC BMP liver enzymes are normal. His ethyl alcohol is less than 10. Law enforcement wrote affidavits for 96-hour hold. I tend to agree he is a danger to himself at this point. Medically, he is stable. Orders will be written for psychiatric admission. Lab Data 06/09/25 02:46 06/09/25 02:46 Laboratory Results WBC 11.98 10^3/uL (3.29-11.43) H 06/09/25 02:46 RBC 4.38 10^6/uL (3.85-5.65) 06/09/25 02:46 Hgb 13.60 g/dL (11.27-16.99) 06/09/25 02:46 Hct 40.0 % (37-53) 06/09/25 02:46 MCV 91.3 fl (82-101) 06/09/25 02:46 MCH 31.1 pg (27-33) 06/09/25 02:46 MCHC 34.0 g/dL (30-55) 06/09/25 02:46 RDW 12.0 % (12.1-15.1) L 06/09/25 02:46 Plt Count 211 10^3/cmm (157-399) 06/09/25 02:46 MPV 8.9 fL (7.4-10.4) 06/09/25 02:46 Neut % (Auto) 69.9 % 06/09/25 02:46 Lymph % (Auto) 12.4 % 06/09/25 02:46 [place] % (Auto) 16.5 % 06/09/25 02:46 Eos % (Auto) 0.3 % 06/09/25 02:46 Baso % (Auto) 0.6 % 06/09/25 02:46 Neut # (Auto) 8.37 10^3/uL (1.8-7.7) H 06/09/25 02:46 Lymph # (Auto) 1.5 10^3/uL (0.8-4.8) 06/09/25 02:46 [place] # (Auto) 2.0 10^3/uL (0.2-0.9) H 06/09/25 02:46 Eos # (Auto) 0.0 10^3/uL (0.0-0.8) 06/09/25 02:46 Baso # (Auto) 0.1 10^3/uL (0.0-0.1) 06/09/25 02:46 Nucleated RBC % (auto) 0 % 06/09/25 02:46 Nucleated RBCs # 0.0 /100WBC 06/09/25 02:46 Sodium 139 mmol/L (136-145) 06/09/25 02:46 Potassium 3.7 mmol/L (3.5-5.1) 06/09/25 02:46 Chloride 103 mmol/L (98-107) 06/09/25 02:46 Carbon Dioxide 22 mmol/L (22-29) 06/09/25 02:46 Anion Gap 17.7 (5-19) 06/09/25 02:46 BUN 12 mg/dL (6-20) 06/09/25 02:46 Creatinine 0.9 mg/dL (0.7-1.2) 06/09/25 02:46 GFR Calculation 103.7 mL/min (90-130) 06/09/25 02:46 Glucose 99 mg/dL (65-115) 06/09/25 02:46 Calculated Osmolality 288 mOsm/kg (285-295) 06/09/25 02:46 Calcium 9.3 mg/dL (8.5-10.5) 06/09/25 02:46 Total Bilirubin 0.4 mg/dL (0.15-1.2) 06/09/25 02:46 AST 20 U/L (0-40) 06/09/25 02:46 ALT 15 U/L (0-41) 06/09/25 02:46 Alkaline Phosphatase 63 U/L (40-130) 06/09/25 02:46 Total Protein 7.3 g/dL (6.6-8.7) 06/09/25 02:46 Albumin 4.9 g/dL (3.5-5.2) 06/09/25 02:46 Globulin 2.4 g/dL (1.3-4.6) 06/09/25 02:46 Salicylates < 0.3 mg/dL (3-10) L 06/09/25 02:46 Acetaminophen < 5.0 ug/mL (10-30) L 06/09/25 02:46 Ethyl Alcohol < 10 mg/dL (0-10) 06/09/25 02:46 No radiology studies performed this visit Discharge Plan Discharge Patient Disposition: Admitted As Inpatient Admit Provider: Girish Cruz Clinical Impression: Acute psychosis Condition: Stable Coding Level of Care Code ED Medical Oncologist for Sean Núñez
--- NOTE | 2025-06-09 05:25 | PC.NURSE ---
96 HH Pt served with copy of 96 HH by this RN and security. Pt arousable to stimuli but unable to stay awake. Pt on monitor, VVS. Copy of 96 HH left at bedside.
[2025-06-09 05:45] VITALS: BP 86/48; PULSE 55; RESP 17; O2SAT 98
[2025-06-09 05:50] VITALS: BP 98/67; PULSE 64; RESP 16; O2SAT 96
--- NOTE | 2025-06-09 08:06 | P.NPUHP_ITS ---
Providers/Chief Complaint 2 Admitting Physician: Girish Cruz MD Chief Complaint: concern for od/ erratic behavior HPI NPU History of Present Illness Bennie Gaona is a 25 year old male who presented to the emergency department with the following report: Chief Complaint: Psychiatric Symptoms Stated Complaint: concern for od/ erratic behavior Time Seen by Provider: 06/09/25 02:41 History of Present Illness: 25-year-old male recently well-known to the psychiatric service here. He was found walking in the middle of the highway, being chased by cats apparently. He attempted to climb into a car when the [employer] driver stopped to ask if he needed help. 911 was called. He was picked up and placed in the police cruiser where he repeatedly struck his own head on the cage of the cruiser. He continued to respond to nonexistent external stimuli, appeared intoxicated, and was brought to the emergency department. Associated symptoms: Reports delusions. He was admitted to the neuropsychiatric unit for definitive treatment of those issues. He is known to [facility] psychiatry mostly through inpatient hospitalizations this velez the fourth since 03/12/2025. An excerpt of his discharge summary from less than a week ago is included below for context and the fact that there have been no substantive changes. He presents with a blood alcohol positive for cocaine methamphetamines marijuana and benzodiazepines though he may have had benzodiazepines in the emergency department. He presents today reporting that things have not changed much since he was last here. He was focused on the fact that supposedly people were not loyal and had betrayed him in someway. We discussed his UDS and concerns about his continued active drug use. He seem to be ambivalent about his role in things going south. He reports that she meaning his fianc?e was being a certain way which she felt was unfair and causing a lot of problems. We discussed what his plans were to do things differently given these frequent hospitalizations and frequent run-ins with the law. He reported concerns about the medication and how the medication might be leading to him feeling way for more likely consistent with his drug use. He was struggling with accountability and identifying the role that the addiction could actually be playing into him ending up the situations like the other way around. We discussed exploring his medication but it was our recommendation that he increase the Invega. We discussed the fact that the symptoms he describes the paranoia and perceptual disturbances likely had more to do with his behaviors and not the medications. But we agreed we would take it a day at a time but discussed the possibilities. Per his 06/03/2025 [facility] inpatient psychiatric discharge summary: Discharge Diagnosis 1. Acute psychosis: 2. Methamphetamine use disorder, severe: 3. Suicidal ideation: 4. Depression: 5. Partner relational problem: Reason for Visit Reason for Visit: 96 HOUR Brief History: History of Present Illness Bennie Gaona is a 25 year old male recently discharged from the neuropsychiatric unit on 05/27/2025 who presented on 05/29/2025 to the emergency room accompanied by police and EMS. He had been extremely agitated and had made alleged threats to his girlfriend. He reports that he had no recollection of what it happened but stated that he had been angry that his parents had prevented him from communicating with his girlfriend's family. He had reported that there had been an ex parte order that had been initiated on the of this month. He states that he was frustrated and angry and was found walking on the street extremely angry and frustrated. He had reported that he did not recall the details of what it happened. He had admitted that he had been taking marijuana that had been dipped in wax. He reports that he has chronic problems with his anxiety as well as reporting that he has problems with paranoia. The patient's urine drug screen was positive for marijuana only. He had not endorsed having used methamphetamine since his discharge 2 days ago. 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 Excerpt from NPU Discharge Summary from 05/27/25 Discharge Diagnosis 1. Suicidal ideation: 2. Depression: 3. Partner relational problem: 4. Methamphetamine use disorder, severe: Reason for Visit SI Brief History: History of Present Illness Bennie Gaona is a 24 year old male who presented to the emergency department with the following report: Chief Complaint: Psychiatric Symptoms Stated Complaint: 96 Time Seen by Provider: 03/11/25 13:13 Source: patient and police Limitations: no limitations History of Present Illness: 24-year-old male states that he has been having suicidal ideations he is brought in by police he had been arguing with his girlfriend and had stated that he is depressed and want to kill himself. States he does have a plan of jumping out of a moving car. Denies any worse improved factors. Patient also hit himself in the head with his face. Associated symptoms: Reports depression and suicidal ideation. He was admitted to the neuropsychiatric unit for definitive treatment of those issues. He is unknown to [facility] psychiatry through any inpatient or outpatient services. He presented with a UDS positive for cannabis and amphetamines. He endorsed that he does have active addiction and that that probably has some impact on his presentation. He was difficult to interview secondary to his lethargy and being tired reporting that he did have some medication to help him calm down. We discussed him being on a 96-hour hold and that we would need to evaluate and get collateral information to identify if he is safe for discharge. We discussed the risks, benefits and alternatives of considering medication for his presenting symptoms and he understood and agreed to proceed as is documented in this note. We discussed trying to have a more robust conversation tomorrow and he was able to stay awake. He endorsed that he would be safe inside the hospital. Hospital Course The patient was restarted on his medications immediately after admission. He had expressed feeling more paranoid and anxious. This time, the patient was started on Invega 3 mg at night to target agitation with noticeable improvement over the course of the next few days. He had continued to express desire to continue with outpatient substance abuse treatment but was also agreeable to placement in approximately 2 weeks at the [facility] for further treatment. During the hospitalization, the patient had routine laboratory studies which were within normal limits except for a few outliers. Additionally, there was a general medical evaluation which was also within normal limits and revealed no new acute processes. At the time of discharge, lethality was denied and psychosis was resolving. Mood and anxiety were well managed. The patient endorsed a plan to avoid all drugs of abuse and follow up with the aftercare recommendations of the treatment team. The patient was evaluated and deemed to be absent credible lethality and had achieved the maximum benefit from an inpatient hospitalization, and so was discharged. Meds NPU Home Medications ?Medication ?Instructions ?Recorded ?Confirmed ?Last Taken ?Type fluoxetine 20 mg capsule 20 mg PO DAILY 30 days #30 c aps 06/03/25 06/09/25 Unknown Rx paliperidone 3 mg tablet,extended 3 mg PO 2100 30 days #30 tabs 06/03/25 06/09/25 Unknown Rx release 24 hr trazodone 50 mg tablet 50 mg PO BEDTIME PRN Sleep 3 0 days 06/03/25 06/09/25 Unknown Rx #30 tabs Allergies Allergy/AdvReac Type Severity Reaction Status Date / Time adhesive Allergy ALGY-Rash Verified 06/09/25 02:39 ketamine Allergy Unknown Verified 06/09/25 02:41 PFSH NPU 2 PFSH: Medical History (Updated 06/09/25 @ 05:09 by Jones Badillo DO) Viral disease exposure Social History Smoking and tobacco/nicotine status: current every day tobacco/nicotine user Mental Status Exam 2 MSE Comments: This is a slender possibly underweight white male in the hospital scrubs with limited grooming and poor eye contact. No abnormal movements except for significant psychomotor retardation. More cooperative with exam in mild to moderate distress. Speech was limited and decreased rate and volume. Mood described as overwhelmed, affect was subdued and lethargic. Thought process linear but at other times appeared disorganized. Thought content: Patient did not report suicidal or homicidal ideation, there were no delusions reported or noted, he did not report auditory or visual hallucinations. Attention and concentration were limited and memory was unreliable but none were formally tested. He is alert and oriented x 3. Insight, judgment and impulse control are impaired. Vitals/I&O/Wt Last Vital Signs Temp 99.6 F 06/09/25 02:33 Pulse 64 06/09/25 05:50 Resp 16 06/09/25 05:50 BP 98/67 06/09/25 05:50 Pulse Ox 96 06/09/25 05:50 O2 Del Method Room Air 06/09/25 05:45 06/08/25 06/09/25 06/09/25 22:59 06:59 14:59 Intake Total 0 / 0 Balance 0 / 0 Weight last 48 hrs Weight 65.771 kg Data NPU 06/09/25 02:46 06/09/25 02:46 A&P Assessment and plan 1. Acute psychosis: 2. Methamphetamine use disorder, severe: 3. Suicidal ideation: 4. Depression: 5. Partner relational problem: Plan: This is a 25-year-old white male who presents for his fourth hospitalization since 03/12/2025. He was last discharged on 06/03/2025 and presents positive for cocaine, marijuana and amphetamines brought in by the police for bizarre and aggressive behavior. 1. Continue current medications. Likely increase Invega. 2. Encourage individual, group and milieu therapies. 3. Continue every 15 minute checks for safety. 4. Encourage sober living treatment after discharge at the highest level care to which he is willing to commit. Recommendation for active/inpatient sober living treatment is still the recommendation 5. Obtain collateral information. 6. Observe against the backdrop of the 96-hour hold. PDMP PDMP Reviewed: Not Reviewed Involuntary Hold Information 2 Hold Status: Legal Status: 96 Hour Hold Attestations NPU 2 Medical Necessity Statement*: Inpatient hospitalization is medically necessary and the clinically appropriate intervention at this time. We will monitor/initiate medications and make changes as indicated. He will be in the hospital for over 2 midnights. Likely length of stay 4 to 6 days. Coding Level of Care Code Acute Code for g Fwd Diagnoses Acute psychosis F23 Methamphetamine use disorder, severe F15.20 Suicidal ideation R45.851 Depression F32.A Partner relational problem Z63.0
--- NOTE | 2025-06-09 08:25 | PC.NURSE ---
Pt. brought in by PD after a good citizian saw him walking down the road and pt. got into [employer] car. citizian then got pt. out of the car the PD was called and pt. then was not arrested or asked to get into the PD vehicle, but got into the back of the car and started banging his head agianst things. PD brought pt. into ER where pt. was brought to NPU. Medication was given to pt. in ER. Pt. had garbled speach and assessment was not able to be completed fully d/t pt.'s cognitive condition. Pt. has been in the NPU several times over the past couple of months d/t meth use. Pt. is on a 96 hr hold.
--- NOTE | 2025-06-09 10:03 | PC.OT ---
OT EVALUATION ATTEMPTED; PER NURSING: HOLD AT THIS TIME DUE TO PATIENT COMING OFF OF METH AND RECEIVING GEODON.
[2025-06-09 12:58] LABS: Glucose Urine UA Negative (Normal); Nitrate Urine Negative (Negative); Specific Gravity, Urine 1.024 (1.005-1.030)
[2025-06-09 13:08] LABS: PCP Screen Urine Negative (Negative)
[2025-06-09 13:29] LABS: Add Urine Microscopic? YES
[2025-06-09 13:59] VITALS: BP 110/70; PULSE 74; RESP 15; TEMP 36.8; O2SAT 100
[2025-06-09 20:23] VITALS: BP 90/56; PULSE 52; RESP 16; TEMP 36.4; O2SAT 97
[2025-06-10 06:00] VITALS: BP 88/59; PULSE 76; RESP 16; TEMP 36.4; O2SAT 98
--- NOTE | 2025-06-10 07:50 | P.NPUPN_ITS ---
Subjective NPU 2 Subjective: Patient presented today reporting that he is doing fine as far as he is concerned but reports that he has some conflicts with some of the people in his life. We discussed the importance of looking at oneself and not focusing on the things he cannot control. He reports that he talked to his mother who had spoken to [facility] and that she was endorsing that they had a bed for him. He reports that he is willing to do that and we discussed the risks, benefits and alternatives of following that plan but also identified that there is a bed at [facility] that might be available as early as tomorrow and he was open to doing that and he understood and agreed to proceed as is documented in this note. He denied any side effects of medication and we discussed the possibility of increasing his Invega. Mental Status Exam 2 MSE Comments: This is a slender possibly underweight white male in the hospital scrubs with limited grooming and poor eye contact. No abnormal movements except for significant psychomotor retardation. More cooperative with exam in mild distress. Speech was limited and decreased rate and volume. Mood described as overwhelmed, affect was subdued and lethargic. Thought process linear but at other times appeared disorganized. Thought content: Patient did not report suicidal or homicidal ideation, there were no delusions reported or noted, he did not report auditory or visual hallucinations. Attention and concentration were limited and memory was unreliable but none were formally tested. He is alert and oriented x 3. Insight, judgment and impulse control are impaired. Vitals/I&O/Wt Last Vital Signs Temp 97.6 F 06/10/25 06:00 Pulse 76 06/10/25 06:00 Resp 16 06/10/25 06:00 BP 88/59 06/10/25 06:00 Pulse Ox 98 06/10/25 06:00 O2 Del Method Room Air 06/10/25 06:00 06/09/25 06/10/25 06/10/25 22:59 06:59 14:59 Intake Total 240 / 240 Balance 240 / 240 Weight last 48 hrs Weight 65.771 kg Data NPU 06/09/25 02:46 06/09/25 02:46 A&P Assessment and plan 1. Acute psychosis: 2. Methamphetamine use disorder, severe: 3. Suicidal ideation: 4. Depression: 5. Partner relational problem: Plan: This is a 25-year-old white male who presents for his fourth hospitalization since 03/12/2025. He was last discharged on 06/03/2025 and presents positive for cocaine, marijuana and amphetamines brought in by the police for bizarre and aggressive behavior. 1. Continue current medications. Likely increase Invega. Increase Invega to 6 mg p.o. nightly 2. Encourage individual, group and milieu therapies. 3. Continue every 15 minute checks for safety. 4. Encourage sober living treatment after discharge at the highest level care to which he is willing to commit. Recommendation for active/inpatient sober living treatment is still the recommendation. Patient may have a bed at [facility] as early as tomorrow we will work with the social work team to follow-up 5. Obtain collateral information. 6. Observe against the backdrop of the 96-hour hold. PDMP PDMP Reviewed: Not Reviewed Involuntary Hold Information 2 Hold Status: Legal Status: 96 Hour Hold Date/Time Hold Expires: 06/13/25 03:45 Attestations NPU 2 Medical Necessity Statement*: Inpatient hospitalization is medically necessary and the clinically appropriate intervention at this time. We will monitor/initiate medications and make changes as indicated. Likely length of stay 3-5 days. Coding Level of Care Code Acute Code for [facility] Fwd Diagnoses Acute psychosis F23 Methamphetamine use disorder, severe F15.20 Suicidal ideation R45.851 Depression F32.A Partner relational problem Z63.0
--- NOTE | 2025-06-10 09:00 | PC.NURSE ---
Signee informed pt. what all his drug test was positive for and he replied David brown while giving a thumbs up. Signee asked pt. why he did all that and he said cause i'm the life of the [employer] party .
[2025-06-10 13:54] VITALS: BP 107/59; PULSE 85; RESP 18; TEMP 37.2; O2SAT 96
[2025-06-10 19:42] VITALS: BP 110/69; PULSE 93; RESP 16; TEMP 37.2; O2SAT 96
--- NOTE | 2025-06-11 06:36 | PC.NURSE ---
pt vs not collected resp 16 charge notified
--- NOTE | 2025-06-11 09:23 | NUR.SHIFT ---
Pt states that he slept good last night. He rates his anxiety a 1/10 and depression 0/10. No reports of SI/Hi or hallucinations. He states that his head is sore to the touch and has a few wounds where is was banging his head in the back of the police care.
[2025-06-11 14:00] VITALS: BP 102/66; PULSE 85; RESP 18; TEMP 37.3; O2SAT 99
--- NOTE | 2025-06-11 18:23 | P.NPUPN_ITS ---
Subjective NPU 2 Subjective: Patient presented today reporting that he is frustrated that [facility] manage that bed the way they did. He got his hopes up that he was going to discharge today and go to [facility] which he was prepared to do. We discussed making sure that he is ready to really engage in rehab and address the issues that have gotten him in this situation with these frequent hospitalizations. We discussed the fact that his support network outside the hospital report significant concerns with his continued enmeshment or near obsessive nature with his ex- girlfriend. He continues to say the right things per staff reports and direct communication about letting her go and moving beyond her but there is some evidence from his outpatient supports there are problems. Additionally we began to discuss him reporting that they were trying to steal his trazodone which we had discussed that makes sense but they report that he was mad that they were taking the trazodone because he was reporting he was going to overdose with it. He denied any side effects to his medications. Mental Status Exam 2 MSE Comments: This is a slender possibly underweight white male in the hospital scrubs with limited grooming and poor eye contact. No abnormal movements except for significant psychomotor retardation. More cooperative with exam in mild distress. Speech was limited and decreased rate and volume. Mood described as a little frustrated while she was just usually, affect was subdued and lethargic. Thought process linear but at other times appeared disorganized. Thought content: Patient did not report suicidal or homicidal ideation, there were no delusions reported or noted, he did not report auditory or visual hallucinations. Attention and concentration were limited and memory was unreliable but none were formally tested. He is alert and oriented x 3. Insight, judgment and impulse control are impaired. Vitals/I&O/Wt Last Vital Signs Temp 99.1 F 06/11/25 14:00 Pulse 85 06/11/25 14:00 Resp 18 06/11/25 14:00 BP 102/66 06/11/25 14:00 Pulse Ox 99 06/11/25 14:00 O2 Del Method Room Air 06/10/25 19:42 Data NPU 06/09/25 02:46 06/09/25 02:46 A&P Assessment and plan 1. Acute psychosis: 2. Methamphetamine use disorder, severe: 3. Suicidal ideation: 4. Depression: 5. Partner relational problem: Plan: This is a 25-year-old white male who presents for his fourth hospitalization since 03/12/2025. He was last discharged on 06/03/2025 and presents positive for cocaine, marijuana and amphetamines brought in by the police for bizarre and aggressive behavior. 1. Continue current medications. Likely increase Invega. Increased Invega to 6 mg p.o. nightly 2. Encourage individual, group and milieu therapies. 3. Continue every 15 minute checks for safety. 4. Encourage sober living treatment after discharge at the highest level care to which he is willing to commit. Recommendation for active/inpatient sober living treatment is still the recommendation. Patient may have a bed at [facility] as early as tomorrow we will work with the social work team to follow-up. Patient somewhat frustrated that the [facility] saying was not available but continues to be open to and working towards treatment. 5. Obtain collateral information. 6. Observe against the backdrop of the 96-hour hold. PDMP PDMP Reviewed: Not Reviewed Involuntary Hold Information 2 Hold Status: Legal Status: 96 Hour Hold Date/Time Hold Expires: 06/13/25 03:45 Attestations NPU 2 Medical Necessity Statement*: Inpatient hospitalization is medically necessary and the clinically appropriate intervention at this time. We will monitor/initiate medications and make changes as indicated. Likely length of stay 2-4 days. Coding Level of Care Code Acute Code for g Fwd Diagnoses Acute psychosis F23 Methamphetamine use disorder, severe F15.20 Suicidal ideation R45.851 Depression F32.A Partner relational problem Z63.0
[2025-06-11] MEDS: paliperidone ER 6 mg Tablet PO (20:01)
[2025-06-11 20:03] VITALS: BP 112/62; PULSE 99; RESP 16; TEMP 37.1; O2SAT 99
[2025-06-12 06:00] VITALS: BP 87/54; PULSE 90; RESP 16; TEMP 36.4; O2SAT 96
--- NOTE | 2025-06-12 07:52 | P.NPUPN_ITS ---
Subjective NPU 2 Subjective: Patient presented today reporting that he feels things going fine. He has a bed date currently on 06/18/2025. We discussed the fact that discharge and consideration surrounding that have a lot to do with whether we believe he will be able to manage himself over those 5 days if he were to be discharged tomorrow versus a day further along in the timeline to the bed date. He was insistent that he would be fine and be able to stay sober through the assistance of his mom and his 1 baby's mom he needs his assistance for moving. He denied any side effects to the medication. Mental Status Exam 2 MSE Comments: This is a slender possibly underweight white male in the hospital scrubs with limited grooming and poor eye contact. No abnormal movements except for significant psychomotor retardation. More cooperative with exam in mild distress. Speech was limited and decreased rate and volume. Mood described as a little frustrated while she was just usually, affect was subdued and lethargic. Thought process linear but at other times appeared disorganized. Thought content: Patient did not report suicidal or homicidal ideation, there were no delusions reported or noted, he did not report auditory or visual hallucinations. Attention and concentration were limited and memory was unreliable but none were formally tested. He is alert and oriented x 3. Insight, judgment and impulse control are impaired. Vitals/I&O/Wt Last Vital Signs Temp 97.5 F L 06/12/25 06:00 Pulse 90 06/12/25 06:00 Resp 16 06/12/25 06:00 BP 87/54 06/12/25 06:00 Pulse Ox 96 06/12/25 06:00 O2 Del Method Room Air 06/12/25 06:00 Data NPU 06/09/25 02:46 06/09/25 02:46 A&P Assessment and plan 1. Acute psychosis: 2. Methamphetamine use disorder, severe: 3. Suicidal ideation: 4. Depression: 5. Partner relational problem: Plan: This is a 25-year-old white male who presents for his fourth hospitalization since 03/12/2025. He was last discharged on 06/03/2025 and presents positive for cocaine, marijuana and amphetamines brought in by the police for bizarre and aggressive behavior. 1. Continue current medications. Likely increase Invega. Increased Invega to 6 mg p.o. nightly 2. Encourage individual, group and milieu therapies. 3. Continue every 15 minute checks for safety. 4. Encourage sober living treatment after discharge at the highest level care to which he is willing to commit. Recommendation for active/inpatient sober living treatment is still the recommendation. Patient may have a bed at [facility] as early as tomorrow we will work with the social work team to follow-up. Patient somewhat frustrated that the [facility] saying was not available but continues to be open to and working towards treatment. 5. Obtain collateral information. 6. Observe against the backdrop of the 96-hour hold. PDMP PDMP Reviewed: Not Reviewed Involuntary Hold Information 2 Hold Status: Legal Status: 96 Hour Hold Date/Time Hold Expires: 06/13/25 03:45 Attestations NPU 2 Medical Necessity Statement*: Inpatient hospitalization is medically necessary and the clinically appropriate intervention at this time. We will monitor/initiate medications and make changes as indicated. Likely length of stay 1-3 days. Coding Level of Care Code Acute Code for [facility] Diagnoses Acute psychosis F23 Methamphetamine use disorder, severe F15.20 Suicidal ideation R45.851 Depression F32.A Partner relational problem Z63.0
[2025-06-12 13:59] VITALS: BP 98/62; PULSE 96; RESP 18; TEMP 36.8; O2SAT 96
[2025-06-12 20:11] VITALS: BP 98/63; PULSE 90; RESP 18; TEMP 36.9; O2SAT 97
[2025-06-12] MEDS: paliperidone ER 6 mg Tablet PO (20:15)
[2025-06-13 06:00] VITALS: BP 93/51; PULSE 79; RESP 17; TEMP 36.4; O2SAT 98
[2025-06-13 12:36] VITALS: BP 105/65; PULSE 86; RESP 17; TEMP 36.8; O2SAT 99
[2025-06-13 13:07] VITALS: BP 105/65; PULSE 86; RESP 17; TEMP 36.6; O2SAT 99
== END 2025-06-13 13:57 | disposition home or self-care (01) | DRG 885 ==
LOC: ER 05:09 → NP 05:32
PROVIDERS: Admitting Provider Psychiatry & Neurology Psychiatry; Emergency Provider Emergency Medicine; Visit Provider Psychiatry & Neurology Psychiatry
DX: F23 Brief psychotic disorder (principal); F15.20 Other stimulant dependence, uncomplicated; R45.851 Suicidal ideations; S01.81XA Laceration without foreign body of other part of head, initial encounter; Y92.810 Car as the place of occurrence of the external cause; W22.09XA Striking against other stationary object, initial encounter; F32.A Depression, unspecified; R63.6 Underweight; Z68.20 Body mass index [BMI] 20.0-20.9, adult; F17.200 Nicotine dependence, unspecified, uncomplicated
CPT/HCPCS: 80053; 80306; 80307; 81001; 85025; 96372; 97150; 97165; 99285; J2060; J3486; J9999

== ENCOUNTER 2025-06-18 19:46 | Emergency (ER) | payer SELFPAY ==
[2025-06-18 19:54] VITALS: BP 120/88; PULSE 89; RESP 17; TEMP 36.7; O2SAT 98; BMI 19.5
--- OUTSIDE RECORDS SUMMARY | 2025-06-18 19:56 | XMS_ITS | Data Portability ---
Author Organization [facility] Kyle Gaytan [facility] Address [address] [place] [address] Assessment No assessment recorded. Plan of Treatment Reminders Order Date Submit Date Provider Last Modified By Organization Details Last Modified Time Details Appointments None recorded. Lab None recorded. Referral None recorded. Procedures None recorded. Surgeries None recorded. Imaging None recorded. Medication Orders cyclobenzap rine 5 mg tablet 2024 025 [facility], [address], [place], [address], 05:01:24 Patient TargetsNo targets recorded. Patient InstructionsNo [...] and Address Organization Details Last Updated DateTime 95556.9 2 g 19.7 kg/m2 180.34 cm 98.2 [degF] 94 /min 97 % 97 % 118/68 mm[Hg] Christine Carty [facility], Kyle 12:32:18 Social History None recorded. Functional Status None recorded. Mental Status None recorded. Family History Nothing Reported. Medical History No medical history recorded. Immunizations Vaccine Type Date Status Note Provider Nam e and Address Organization Details Recorded Time Hep B, adolescent or pediatric 1 completed Not Available [facility] 12/28/2024 12:26:16 Hep B, adolescent or pediatric 1 completed Not Available [facility] 12/28/2024 12:26:16 DTaP 1 completed Not Available [facility] 12/28/2024 12:26:16 IPV 1 completed Not Available [...] pneumococcal, unspecified formulation 3 completed Not Available [facility] 12/28/2024 12:26:16 varicella 3 completed Not Available [facility] 12/28/2024 12:26:16 MMR 3 completed Not Available [facility] 12/28/2024 12:26:16 IPV 3 completed Not Available [facility] 12/28/2024 12:26:16 Hib (PRP-T) 3 completed Not Available [facility] 12/28/2024 12:26:16 DTaP 3 completed Not Available [facility] 12/28/2024 12:26:16 DTaP 6 completed Not Available [facility] 12/28/2024 12:26:16 IPV 6 completed Not Available [facility] 12/28/2024 12:26:16 MMR 6 completed Not Available [facility] 12/28/2024 12:26:16 varicella 5 completed Not Available [facility] 12/28/2024 12:26:16 Tdap 5 completed Not Available [facility] 12/28/2024 12:26:16 meningococcal MCV4P 5 completed Not Available [facility] 12/28/2024 12:26:16 Past Encounters Encounter ID Performer Location Encounter Start Date Encounter Closed Date Diagnosis/Indication Diagnosis SNOMED-CT Code Diagnosis ICD10 Code Diagnosis IMO Codes Diagnosis Note [id number] [facility] ([facility]) [address] [place] [address] 12/28/2024 12:25:55 12/29/2024 17:14:41 Acute low back pain 071202702 M54.50 [id number] COntinue voltaren gel. Patient advised to take [...] Guarantor Name 12/28/2024 1 [employer] (MEDICAID REPLACEMENT - HMO) [id number] Bennie Gaona [id number] Bennie Gaona Notes Date Note Type [...] known ill contacts. EDY CUTLER, [facility] [address] [place], [address] 12/28/2024 13:31:33
--- NOTE | 2025-06-18 20:26 | W.ED.GENADLT ---
HPI - General Adult General: Chief complaint: General Medical Stated complaint: aggressive Time Seen by Provider: 06/18/25 19:48 History of Present Illness: 25yo M w/cc of concern for dehydration. Patient states that he has walked a lot today and on the side of the road drink some nasty water. He is concerned that he is dehydrated. He admits to smoking THC today and feels like he has dry mouth. Patient has not been ill with a fever and denies chest pain, shortness of breath, syncopal events, fall or injury, abdominal pain, nausea, vomiting. Patient is ambulatory and at this time, does not have any complaints and wishes to leave without any workup. Patient is able to answer orientation questions and is ambulatory. He denies hallucinations, HI, SI. Related Data Previous Rx's ?Medication ?Instructions ?Recorded fluoxetine 20 mg capsule 20 mg PO DAILY 30 days #30 caps 06/13/25 hydroxyzine pamoate 25 mg capsule 50 mg (2 x 25 mg) PO Q6H PRN 06/13/25 Anxiety 30 days #120 caps paliperidone 6 mg tablet,extended 6 mg PO 2100 30 days #30 tabs 06/13/25 release 24 hr trazodone 50 mg tablet 50 mg PO BEDTIME PRN Sleep 30 days 06/13/25 #30 tabs Allergies Allergy/AdvReac Type Severity Reaction Status Date / Time adhesive Allergy ALGY-Rash Verified 06/09/25 02:39 [facility] ED [facility]: Medical History (Updated 06/18/25 @ 20:29 by Maida Saini MD) Viral disease exposure Social History Smoking and tobacco/nicotine status: current every day tobacco/nicotine user Physical Exam Narrative: EXAM NARRATIVE: Vital signs were reviewed. Patient is alert and oriented. Patient is breathing comfortably, no increased WOB or accessory muscle use. SpO2 is above 95% on RA. Patient has clear lung sounds bilaterally, normal heart sounds. No hypotension or tachycardia. He has soft, nondistended nontender abdomen. Patient is moving all extremities, no deformity or gross injury. Course Vital Signs: Vital signs: Vital Signs Temperature 98.1 F 06/18/25 19:54 Pulse Rate 89 06/18/25 19:54 Respiratory Rate 17 06/18/25 19:54 Blood Pressure 120/88 06/18/25 19:54 Pulse Oximetry 98 06/18/25 19:54 Oxygen Delivery Me thod Room Air 06/18/25 19:54 MDM - General Adult Medical Decision Making 25-year-old male with a chief complaint of concern for dehydration. He states he also drank some water after walking for a long time on the side of the road that he felt was nasty. Differential diagnosis includes presumptive, dehydration, dry mouth due to THC/marijuana use, gastroenteritis, viral illness, injury, other. On exam he is in regular stable nontoxic-appearing. He is alert and able to answer orientation questions appropriately. He denies SI, HI or hallucinations. Patient is no longer concerned and is tolerating p.o. intake on my exam. Patient refuses any further workup and states that he does not have any concerns at this time. Patient has decision-making capacity, is not grossly disabled and is ambulatory. I do not see any reason to hold patient against as well. Patient was discharged without any further lab work or imaging. No radiology studies performed this visit Discharge Plan Discharge Patient Disposition: Home Clinical Impression: Encounter for medical screening examination Condition: Stable Prescriptions: No Action hydroxyzine pamoate 25 mg Capsule 50 mg PO Q6H PRN (Reason: Anxiety) 30 Days Qty: 120 1RF paliperidone 6 mg Tablet Extended Release 24hr 6 mg PO 2100 30 Days Qty: 30 1RF trazodone 50 mg Tablet 50 mg PO BEDTIME PRN (Reason: Sleep) 30 Days Qty: 30 1RF fluoxetine 20 mg Capsule 20 mg PO DAILY 30 Days Qty: 30 1RF Discharge Orders: Discharge ED (Routine); Ordered 06/18/25 Ordered By: Maida Saini Patient Instructions: Opioid Safety, Pain Management, Patient Portal & [place] Instructions Activity Restrictions/Additional Instructions: Continue to monitor your condition closely at home. If your condition worsens or additional concerns arise, please return to the emergency department for reassessment. Please follow-up with your primary care physician in 1 week as needed. Print Language: Greek Coding Level of Care Code [facility] [employer] Salesperson for Sean Núñez
== END 2025-06-18 20:35 | disposition home or self-care (01) ==
PROVIDERS: Emergency Provider Emergency Medicine
DX: Z00.00 Encounter for general adult medical examination without abnormal findings (principal); Z72.0 Tobacco use
CPT/HCPCS: 99283